=== PATIENT | male | born 1970 | race Caucasian/White ===

== ENCOUNTER → 2017-06-08 | Outpatient (CLI) | payer BC ==
[~2017-06-08] MED LIST: ASPI81TA40 PO; ICOS1CAP PO; LORA10CA9 PO; MULT-1192 PO; ROSU10TA35 PO; [UNRECOGNIZED DRUG - OTHER] PO
== END | disposition home or self-care (01) ==
LOC: SHCH 14:41
PROVIDERS: ATTEND Internal Medicine Cardiovascular Disease
DX: I08.0 Rheumatic disorders of both mitral and aortic valves (principal)
CPT/HCPCS: 93306

== ENCOUNTER → 2017-06-21 | Outpatient (CLI) | payer BC ==
[~2017-06-21] MED LIST changes: +REGADENOSON 0.4 MG/5 ML PF SYG IVP SCH
== END | disposition home or self-care (01) ==
LOC: SHCH 09:18
PROVIDERS: ATTEND Internal Medicine Cardiovascular Disease
DX: I20.9 Angina pectoris, unspecified (principal)
CPT/HCPCS: 78452; 93017; 96374; A9500 ×2; J2785

== ENCOUNTER → 2017-07-02 | Outpatient (CLI) | payer BC ==
[~2017-07-02] MED LIST changes: +IOPAMIDOL-370 100 ML VIAL IV ONE; -REGADENOSON 0.4 MG/5 ML PF SYG IVP SCH
== END | disposition home or self-care (01) ==
LOC: RAH 08:47
PROVIDERS: ATTEND Internal Medicine Cardiovascular Disease
DX: K80.20 Calculus of gallbladder without cholecystitis without obstruction (principal); R91.1 Solitary pulmonary nodule; Q25.1 Coarctation of aorta
CPT/HCPCS: 71275; Q9967

== ENCOUNTER 2017-07-12 07:29 | Inpatient (IN) | payer BC ==
[~2017-07-12] VITALS: Ht 185.4 cm; Wt 104.6 kg
[2017-07-12] VITALS (16 sets, daily range): BP systolic 105–139; BP diastolic 57–87
[2017-07-12] MEDS ORDERED: SODIUM CHLORIDE 0.9% 500ML 500 ML IV SCH ×2 (07:35→17:47)
[2017-07-12] MEDS ORDERED: ASPIRIN 325 MG TABLET ONE (07:57)
[2017-07-12] MEDS ORDERED: LIDOCAINE HCL 2% 20ML ONE ×2 (07:59→09:34)
[2017-07-12] MEDS ORDERED: HEPARIN SODIUM 1000UNIT/ML 10ML VIAL ONE ×3 (07:59→13:24)
[2017-07-12] MEDS ORDERED: IOPAMIDOL-370 100 ML VIAL IV ONE (07:59)
[2017-07-12] MEDS ORDERED: ISOVUE-370 50ML VIAL IV ONE (08:00)
[2017-07-12 08:03] LABS: HEMATOCRIT 38.4 % (42-54); MEAN CORPUSCULAR HEMOGLOBIN 29.5 pg (27.0-33.0); MEAN CORPUSCULAR HGB CONC 34.2 g/dL (32.0-36.0); MEAN CORPUSCULAR VOLUME 86.1 fL (79-99); PLATELET COUNT (AUTO) 283 K/uL (130-400); RED BLOOD CELL COUNT(AUTO) 4.46 MIL/uL (4.50-6.20); RED CELL DISTRIBUTION WIDTH 12.7 % (11.0-15.5); WHITE BLOOD COUNT (AUTO) 6.9 K/uL (4.8-10.8)
[2017-07-12 08:22] LABS: INR 0.89 (0.85-1.15); PARTIAL THROMBOPLASTIN TIME 24.7 SEC (26.3-35.5); PROTHROMBIN TIME 9.4 SEC (9.6-11.6)
[2017-07-12 08:24] LABS: CREATINE KINASE MB 1.3 ng/mL (0.5-3.6); CREATININE 1.1 mg/dL (0.5-1.5); POTASSIUM 4.2 mmol/L (3.5-5.1)
[2017-07-12 08:46] LABS: B-TYPE NATRIURETIC PEPTIDE 14 pg/mL (0-100)
[2017-07-12 08:59] LABS: APPEARANCE,URINE Clear (CLEAR); BILIRUBIN,URINE Negative (NEGATIVE); COLOR,URINE Yellow (YELLOW); GLUCOSE, URINE (UA) Negative (NEGATIVE); KETONES,URINE Negative (NEGATIVE); LEUKOCYTE ESTERASE ,URINE Negative (NEGATIVE); NITRATE,URINE Negative (NEGATIVE); OCCULT BLOOD,URINE Negative (NEGATIVE); PH,URINE 6.5 (5.0-8.0); PROTEIN,URINE Negative (NEGATIVE); UROBILINOGEN,URINE 0.2 mg/dL (0.2-1.0)
[2017-07-12] MEDS ORDERED: PAPAVERINE HCL 30 MG/ML 2ML VIAL ONE (12:40)
[2017-07-12] MEDS ORDERED: BACITRACIN 50,000 UNIT VIAL ONE (12:41)
[2017-07-12] MEDS ORDERED: NITROGLYCERIN 50 MG/D5% WATER 1 BOT ONE (12:41)
[2017-07-12] MEDS ORDERED: GLYCOPYRROLATE 0.2 MG/ML 5 ML VIAL ONE (13:24)
[2017-07-12] MEDS ORDERED: PROPOFOL 10 MG/ML 20ML VIAL IV ONE (13:24)
[2017-07-12] MEDS ORDERED: NOREPINEPHRINE BITARTRATE 1 MG/1 ML ML IV ONE ×3 (13:24→17:29)
[2017-07-12] MEDS ORDERED: AMINOCAPROIC ACID 250 MG/ML 20 ML VIAL IV ONE (13:24)
[2017-07-12] MEDS ORDERED: AMIODARONE HCL 900MG/18ML IV ONE (13:24)
[2017-07-12] MEDS ORDERED: ROCURONIUM BROMIDE 10MG/1ML 5ML VL ONE ×3 (13:24→18:01)
[2017-07-12] MEDS ORDERED: NEOSTIGMINE METHYLSULFATE 1MG/ML IV ONE (13:24)
[2017-07-12] MEDS ORDERED: LIDOCAINE PF 2% 5ML ABBOJECT ONE (13:24)
[2017-07-12] MEDS ORDERED: MILRINONE-D5W 20 MG/100 ML 0 ML IV ONE (13:24)
[2017-07-12] MEDS ORDERED: PROTAMINE SULFATE 10 MG/ML 25ML VIAL IV ONE (13:24)
[2017-07-12] MEDS ORDERED: ESMOLOL HCL 10 MG/ML 10 ML VIAL ONE (13:24)
[2017-07-12] MEDS ORDERED: FENTANYL CITRATE PF 50 MCG/1 ML 20ML VIAL IJ ONE (13:24)
[2017-07-12] MEDS ORDERED: EPINEPHRINE 1 MG/ML AMPULE ONE (13:24)
[2017-07-12] MEDS ORDERED: MIDAZOLAM HCL 1 MG/ML 5ML VIAL ONE (13:25)
[2017-07-12] MEDS ORDERED: CEFUROXIME 1.5GM+NS 100ML 100 ML IV SCH (13:30)
[2017-07-12] MEDS: CEFUROXIME SODIUM 1.5 GM VIAL IVP SCH ×2 (13:45→14:28)
[2017-07-12 14:03] LABS: HEMOGLOBIN A1C 5.8 % (4.0-6.0)
[2017-07-12 14:06] LABS: INR 0.9 (0.85-1.15); PARTIAL THROMBOPLASTIN TIME 25.7 SEC (26.3-35.5); PROTHROMBIN TIME 9.5 SEC (9.6-11.6)
[2017-07-12 14:08] LABS: CHOLESTEROL 146 mg/dL (<200); HDL CHOLESTEROL 45 mg/dL (29-71); LDL DIRECT 73 mg/dL (0-99); TRIGLYCERIDES 210 mg/dL (30-200)
[2017-07-12] MEDS ORDERED: SODIUM CHLORIDE 0.9% 1000ML 1,000 ML IV ONE ×2 (14:11→14:52)
[2017-07-12] MEDS ORDERED: THROMBIN-JMI 5000 UNIT/VIAL TP ONE (14:18)
[2017-07-12] MEDS ORDERED: DELNIDO FORMULA 2 BAG IV ONE (14:18)
[2017-07-12] MEDS ORDERED: ALBUMIN (HUMAN) 5% 250 ML IV ONE (14:52)
[2017-07-12 17:05] LABS: ABG BASE EXCESS -7.8 mmol/L (-2.0-3.0); ABG HCO3 19.9 mmol/L (21.0-28.0); ABG PCO2 50 mmHg (35-48)
[2017-07-12] MEDS ORDERED: SODIUM BICARB 50MEQ 50ML VIAL ONE ×3 (17:35→19:49)
[2017-07-12 17:37] LABS: ABG BASE EXCESS -4.7 mmol/L (-2.0-3.0); ABG HCO3 22.4 mmol/L (21.0-28.0); ABG OXYGEN SATURATION 98.9 % (95.0-99.0); ABG PCO2 50 mmHg (35-48)
[2017-07-12 17:49] LABS: ABG BASE EXCESS 0.5 mmol/L (-2.0-3.0); ABG HCO3 26.4 mmol/L (21.0-28.0); ABG OXYGEN SATURATION 98.9 % (95.0-99.0); ABG PCO2 48 mmHg (35-48)
[2017-07-12] MEDS ORDERED: NICARDIPINE HCL 100 MG in SODIUM CHLORIDE 0.9% 100 ML IV PRN (18:00)
[2017-07-12] MEDS ORDERED: HYDROCODONE/ACETAMINOPHEN 5/325 MG TAB PO PRN (18:00)
[2017-07-12] MEDS ORDERED: SODIUM CHLORIDE 0.9% 10 ML VIAL IVP PRN (18:00)
[2017-07-12] MEDS ORDERED: NOREPINEPHRINE 4MG/NS 250ML 250 ML IV PRN (18:00)
[2017-07-12] MEDS ORDERED: ALBUMIN (HUMAN) 5% 250 ML IV PRN (18:00)
[2017-07-12] MEDS ORDERED: SODIUM BICARB 8.4% 50ML SYRINGE IV PRN (18:00)
[2017-07-12] MEDS ORDERED: GLUCAGON 1MG KIT 1 MG ML IM PRN (18:00)
[2017-07-12] MEDS ORDERED: EPINEPHRINE 2 MG in SODIUM CHLORIDE 0.9% 250 ML IV PRN (18:00)
[2017-07-12] MEDS ORDERED: MAGNESIUM 2GM PREMIX 50ML 50 ML IV PRN (18:00)
[2017-07-12] MEDS ORDERED: DEXTROSE 50%-WATER 50 ML DISP.SYRIN IV PRN (18:00)
[2017-07-12] MEDS ORDERED: CALCIUM GLUCONATE 1 GM in SODIUM CHLORIDE 0.9% 50 ML IV PRN (18:00)
[2017-07-12] MEDS ORDERED: POTASSIUM PHOS 15 mMOL+NS250ML 250 ML IV PRN (18:00)
[2017-07-12] MEDS ORDERED: INSULIN REGULAR, HUMAN 3ML 100 UNIT in SODIUM CHLORIDE 0.9% 99 ML IV SCH ×2 (18:00)
[2017-07-12] MEDS ORDERED: NITROGLYCERIN 50 MG/D5% WATER 250 BOT IV SCH (18:00)
[2017-07-12] MEDS ORDERED: SODIUM CHLORIDE 0.9% 250 ML IV PRN (18:00)
[2017-07-12] MEDS ORDERED: SODIUM CHLORIDE 0.9% 1000ML 1,000 ML IV SCH (18:00)
[2017-07-12] MEDS ORDERED: ONDANSETRON HCL 4 MG/2 ML VIAL IV PRN (18:00)
[2017-07-12] MEDS ORDERED: AMINOCAPROIC ACID 15,000 MG in SODIUM CHLORIDE 0.9% 250 ML IV SCH (18:00)
[2017-07-12] MEDS ORDERED: ACETAMINOPHEN 650 MG SUPPOSITORY RC PRN (18:00)
[2017-07-12] MEDS ORDERED: PROPOFOL 1000 MG/100 ML 100 ML IV PRN (18:00)
[2017-07-12] MEDS ORDERED: INSULIN HUMULIN R 100 UNIT/ML 3ML ONE (18:04)
[2017-07-12] MEDS ORDERED: CEFUROXIME SODIUM 1.5 GM VIAL ONE (18:14)
[2017-07-12 18:24] LABS: ABG BASE EXCESS -3.2 mmol/L (-2.0-3.0); ABG HCO3 23.1 mmol/L (21.0-28.0); ABG OXYGEN SATURATION 97.2 % (95.0-99.0); ABG PCO2 46 mmHg (35-48)
[2017-07-12] MEDS ORDERED: EPHEDRINE SULFATE 50 MG/ML AMPULE ONE (18:36)
[2017-07-12] MEDS: MORPHINE SULFATE 4 MG/1ML SYG IV PRN ×2 (19:18→20:39)
[2017-07-12 19:19] LABS: ABG HCO3 25.3 mmol/L (21.0-28.0); ABG OXYGEN SATURATION 94.6 % (95.0-99.0); ABG PCO2 49 mmHg (35-48)
[2017-07-12 19:39] LABS: HEMATOCRIT 34.6 % (42-54); MEAN CORPUSCULAR HEMOGLOBIN 29.7 pg (27.0-33.0); MEAN CORPUSCULAR HGB CONC 34.2 g/dL (32.0-36.0); MEAN CORPUSCULAR VOLUME 86.8 fL (79-99); PLATELET COUNT (AUTO) 175 K/uL (130-400); RED BLOOD CELL COUNT(AUTO) 3.99 MIL/uL (4.50-6.20); RED CELL DISTRIBUTION WIDTH 13.1 % (11.0-15.5); WHITE BLOOD COUNT (AUTO) 20.3 K/uL (4.8-10.8)
[2017-07-12] MEDS ORDERED: EPINEPHRINE 8 MG in SODIUM CHLORIDE 0.9% 250 ML IV PRN (19:45)
[2017-07-12] MEDS: POTASSIUM CHLORIDE 20MEQ/100ML 100 ML IV PRN ×2 (19:47→21:29)
[2017-07-12 19:58] LABS: CREATININE 1.4 mg/dL (0.5-1.5); MAGNESIUM 2.2 mg/dL (1.80-2.40); POTASSIUM 3.3 mmol/L (3.5-5.1)
[2017-07-12 20:00] LABS: ABG BASE EXCESS -1.2 mmol/L (-2.0-3.0); ABG HCO3 25.2 mmol/L (21.0-28.0); ABG OXYGEN SATURATION 97.2 % (95.0-99.0); ABG PCO2 49 mmHg (35-48)
[2017-07-12 21:17] LABS: ABG BASE EXCESS -1.1 mmol/L (-2.0-3.0); ABG OXYGEN SATURATION 98.2 % (95.0-99.0); ABG PCO2 42 mmHg (35-48)
[2017-07-12 22:12] LABS: ABG BASE EXCESS 2.5 mmol/L (-2.0-3.0); ABG HCO3 26.4 mmol/L (21.0-28.0); ABG OXYGEN SATURATION 98.8 % (95.0-99.0); ABG PCO2 39 mmHg (35-48)
[2017-07-12 23:31] LABS: ABG BASE EXCESS 2.4 mmol/L (-2.0-3.0); ABG HCO3 27.3 mmol/L (21.0-28.0); ABG OXYGEN SATURATION 97.9 % (95.0-99.0); ABG PCO2 44 mmHg (35-48)
[2017-07-12] MEDS ORDERED: CALCIUM GLUCONATE 1 GM/10 ML VIAL IV ONE (23:34)
[2017-07-13] VITALS (24 sets, daily range): BP systolic 89–129; BP diastolic 50–70
[2017-07-13 00:37] LABS: ABG BASE EXCESS 5.6 mmol/L (-2.0-3.0); ABG HCO3 30.3 mmol/L (21.0-28.0); ABG OXYGEN SATURATION 97.1 % (95.0-99.0); ABG PCO2 45 mmHg (35-48)
[2017-07-13] MEDS ORDERED: ACETAMINOPHEN ELIXIR 325 MG/10.15ML UDCUP ONE ×2 (01:10→02:06)
[2017-07-13 01:48] LABS: ABG BASE EXCESS 5.7 mmol/L (-2.0-3.0); ABG HCO3 29.8 mmol/L (21.0-28.0); ABG OXYGEN SATURATION 97.7 % (95.0-99.0); ABG PCO2 41 mmHg (35-48)
[2017-07-13] MEDS ORDERED: CEFUROXIME 1.5GM+NS 100ML 100 ML IV SCH (02:00)
[2017-07-13] MEDS: CEFUROXIME SODIUM 1.5 GM VIAL IVP SCH ×2 (02:30→13:56)
[2017-07-13] MEDS: WATER FOR INJECTION,STERILE 20 ML VIAL IJ SCH ×2 (02:30→13:56)
[2017-07-13 03:25] LABS: ABG BASE EXCESS 3.2 mmol/L (-2.0-3.0); ABG OXYGEN SATURATION 96.1 % (95.0-99.0); ABG PCO2 44 mmHg (35-48)
[2017-07-13 03:57] LABS: HEMATOCRIT 32.4 % (42-54); MEAN CORPUSCULAR HGB CONC 33.5 g/dL (32.0-36.0); MEAN CORPUSCULAR VOLUME 86.6 fL (79-99); PLATELET COUNT (AUTO) 200 K/uL (130-400); RED BLOOD CELL COUNT(AUTO) 3.74 MIL/uL (4.50-6.20); RED CELL DISTRIBUTION WIDTH 12.9 % (11.0-15.5); WHITE BLOOD COUNT (AUTO) 12.5 K/uL (4.8-10.8)
[2017-07-13 04:31] LABS: CREATININE 1.5 mg/dL (0.5-1.5); MAGNESIUM 1.9 mg/dL (1.80-2.40); PHOSPHORUS 2.7 mg/dL (2.5-4.9); POTASSIUM 4.3 mmol/L (3.5-5.1)
[2017-07-13] MEDS ORDERED: ALBUMIN (HUMAN) 5% 250 ML IV SCH ×2 (05:50→11:00)
[2017-07-13] MEDS ORDERED: ALBUMIN (HUMAN) 5% 250 ML IV ONE (05:50)
[2017-07-13] MEDS: PANTOPRAZOLE SODIUM 40 MG TABLET.DR PO SCH (07:40)
[2017-07-13] MEDS: HYDROCODONE/ACETAMINOPHEN 5/325 MG TAB PO PRN ×4 (07:40→19:48)
[2017-07-13] MEDS ORDERED: 1/2 NORMAL SALINE 1,000 ML IV SCH (11:00)
[2017-07-13] MEDS: METOCLOPRAMIDE 10 MG/2 ML VIAL IVP SCH ×2 (11:19→17:05)
[2017-07-13] MEDS: ASPIRIN 81MG TAB.CHEW PO SCH (11:24)
[2017-07-13] MEDS: GUAIFENESIN 600 MG TABLET.ER PO SCH ×2 (11:24→20:01)
[2017-07-13] MEDS: IPRATROPIUM/ALBUTEROL SULFATE 3 ML SOLUTION IH SCH ×2 (13:13→23:16)
[2017-07-13] MEDS: METOPROLOL TARTRATE 25 MG TAB PO SCH ×2 (13:52→20:03)
[2017-07-13] MEDS: WARFARIN SODIUM 2 MG TAB PO SCH (17:09)
[2017-07-13] MEDS: ATORVASTATIN CALCIUM 20 MG TABLET PO SCH (20:03)
[2017-07-13] MEDS ORDERED: GUAIFENESIN 600 MG TABLET.ER PO SCH (21:00)
[2017-07-13] MEDS ORDERED: METOPROLOL TARTRATE 25 MG TAB PO SCH (21:00)
[2017-07-14] VITALS (21 sets, daily range): BP systolic 102–140; BP diastolic 57–88
[2017-07-14] MEDS: METOCLOPRAMIDE 10 MG/2 ML VIAL IVP SCH ×4 (01:00→18:00)
[2017-07-14 01:38] LABS: ABG BASE EXCESS 2.3 mmol/L (-2.0-3.0); ABG HCO3 26.6 mmol/L (21.0-28.0); ABG OXYGEN SATURATION 90.2 % (95.0-99.0); ABG PCO2 40 mmHg (35-48)
[2017-07-14] MEDS ORDERED: FUROSEMIDE 10 MG/ML 4ML VIAL ONE (01:50)
[2017-07-14] MEDS ORDERED: FUROSEMIDE 10 MG/ML 4ML VIAL IV SCH (02:00)
[2017-07-14] MEDS: WATER FOR INJECTION,STERILE 20 ML VIAL IJ SCH (02:17)
[2017-07-14] MEDS: CEFUROXIME SODIUM 1.5 GM VIAL IVP SCH (02:17)
[2017-07-14 02:42] LABS: ABG BASE EXCESS 2.9 mmol/L (-2.0-3.0); ABG HCO3 27.5 mmol/L (21.0-28.0); ABG OXYGEN SATURATION 97.2 % (95.0-99.0); ABG PCO2 42 mmHg (35-48)
[2017-07-14] MEDS: ACETAMINOPHEN 325 MG TAB PO PRN ×3 (03:24→17:13)
[2017-07-14 04:17] LABS: BASOPHILS % (AUTO) 0.2 % (0.0-5.0); HEMATOCRIT 27.4 % (42-54); MEAN CORPUSCULAR HEMOGLOBIN 30.1 pg (27.0-33.0); MEAN CORPUSCULAR HGB CONC 34.5 g/dL (32.0-36.0); MEAN CORPUSCULAR VOLUME 87.3 fL (79-99); MONOCYTES % (AUTO) 11.9 % (3.0-13.0); NEUTROPHILS % (AUTO) 75.9 % (40.0-77.0); PLATELET COUNT (AUTO) 172 K/uL (130-400); RED BLOOD CELL COUNT(AUTO) 3.14 MIL/uL (4.50-6.20); RED CELL DISTRIBUTION WIDTH 13.3 % (11.0-15.5); WHITE BLOOD COUNT (AUTO) 14.6 K/uL (4.8-10.8)
[2017-07-14 04:39] LABS: ABG BASE EXCESS 3.5 mmol/L (-2.0-3.0); ABG HCO3 28.1 mmol/L (21.0-28.0); ABG OXYGEN SATURATION 95.6 % (95.0-99.0); ABG PCO2 42 mmHg (35-48)
[2017-07-14 04:40] LABS: CREATININE 1.1 mg/dL (0.5-1.5); POTASSIUM 3.6 mmol/L (3.5-5.1)
[2017-07-14] MEDS ORDERED: SODIUM CHLORIDE FOR INHALATION 3 ML VIAL.NEB. IH ONE (06:07)
[2017-07-14] MEDS: POTASSIUM CHLORIDE 20MEQ/100ML 100 ML IV PRN (06:10)
[2017-07-14 06:23] LABS: ABG BASE EXCESS 3.4 mmol/L (-2.0-3.0); ABG HCO3 27.7 mmol/L (21.0-28.0); ABG PCO2 41 mmHg (35-48)
[2017-07-14] MEDS: IPRATROPIUM/ALBUTEROL SULFATE 3 ML SOLUTION IH SCH ×3 (06:54→22:07)
[2017-07-14] MEDS: MORPHINE SULFATE 4 MG/1ML SYG IV PRN (07:45)
[2017-07-14] MEDS: POTASSIUM CHLORIDE 20 MEQ ERTAB PO SCH ×2 (09:00→21:00)
[2017-07-14] MEDS ORDERED: ASPIRIN 81MG TAB.CHEW PO SCH (09:00)
[2017-07-14 09:21] LABS: INR 0.95 (0.85-1.15)
[2017-07-14] MEDS ORDERED: OSELTAMIVIR PHOSPHATE 75 MG CAP PO SCH (09:30)
[2017-07-14] MEDS ORDERED: ZOSYN 3.375GM+NS 50ML 50 ML IV SCH (09:30)
[2017-07-14] MEDS: GUAIFENESIN 600 MG TABLET.ER PO SCH (10:16)
[2017-07-14] MEDS: ASPIRIN 81MG TAB.CHEW PO SCH (10:16)
[2017-07-14] MEDS: METOPROLOL TARTRATE 25 MG TAB PO SCH ×2 (10:16→20:02)
[2017-07-14] MEDS: PANTOPRAZOLE SODIUM 40 MG TABLET.DR PO SCH (10:16)
[2017-07-14] MEDS: MEROPENEM 1 GM VIAL IVP SCH ×2 (10:49→18:16)
[2017-07-14] MEDS: MORPHINE SULFATE 2 MG/ML 1ML SYG IV PRN ×2 (12:21→17:22)
[2017-07-14 16:34] LABS: CREATININE 1.2 mg/dL (0.5-1.5)
[2017-07-14 16:52] LABS: ABG BASE EXCESS 6.2 mmol/L (-2.0-3.0); ABG HCO3 30.8 mmol/L (21.0-28.0); ABG PCO2 44 mmHg (35-48)
[2017-07-14] MEDS: FUROSEMIDE 100 MG in SODIUM CHLORIDE 0.9% 90 ML IV SCH (16:56)
[2017-07-14] MEDS: WARFARIN SODIUM 2 MG TAB PO SCH (17:14)
[2017-07-14] MEDS: VANCOMYCIN 1GM+NS 250ML 250 ML IV SCH (20:01)
[2017-07-14] MEDS: ATORVASTATIN CALCIUM 20 MG TABLET PO SCH (20:01)
[2017-07-14] MEDS: OSELTAMIVIR PHOSPHATE 75 MG CAP PO SCH (20:02)
[2017-07-14] MEDS: FAMOTIDINE/PF 20 MG/2 ML VIAL IV SCH (20:08)
[2017-07-14 21:57] LABS: ABG BASE EXCESS 6.5 mmol/L (-2.0-3.0); ABG HCO3 31.4 mmol/L (21.0-28.0); ABG OXYGEN SATURATION 98.2 % (95.0-99.0); ABG PCO2 47 mmHg (35-48)
[2017-07-15] VITALS (24 sets, daily range): BP systolic 95–146; BP diastolic 49–89
[2017-07-15] MEDS: MEROPENEM 1 GM VIAL IVP SCH ×4 (01:13→23:59)
[2017-07-15] MEDS: FUROSEMIDE 100 MG in SODIUM CHLORIDE 0.9% 90 ML IV SCH ×3 (02:21→20:42)
[2017-07-15 03:54] LABS: MEAN CORPUSCULAR HEMOGLOBIN 29.3 pg (27.0-33.0); MEAN CORPUSCULAR HGB CONC 33.6 g/dL (32.0-36.0); MEAN CORPUSCULAR VOLUME 87.1 fL (79-99); NUCLEATED RED BLOOD CELLS 0.1 % (0.0-0.19); PLATELET COUNT (AUTO) 204 K/uL (130-400); RED BLOOD CELL COUNT(AUTO) 3.09 MIL/uL (4.50-6.20); RED CELL DISTRIBUTION WIDTH 13.2 % (11.0-15.5); WHITE BLOOD COUNT (AUTO) 14.5 K/uL (4.8-10.8)
[2017-07-15 04:06] LABS: CREATININE 1.2 mg/dL (0.5-1.5); MAGNESIUM 2.2 mg/dL (1.80-2.40); PHOSPHORUS 3.4 mg/dL (2.5-4.9); POTASSIUM 3.8 mmol/L (3.5-5.1)
[2017-07-15 05:21] LABS: ABG BASE EXCESS 8.5 mmol/L (-2.0-3.0); ABG HCO3 33.7 mmol/L (21.0-28.0); ABG OXYGEN SATURATION 97.4 % (95.0-99.0); ABG PCO2 48 mmHg (35-48)
[2017-07-15] MEDS: METOCLOPRAMIDE 10 MG/2 ML VIAL IVP SCH ×2 (06:00)
[2017-07-15] MEDS: IPRATROPIUM/ALBUTEROL SULFATE 3 ML SOLUTION IH SCH ×3 (07:33→22:14)
[2017-07-15] MEDS: VANCOMYCIN 1GM+NS 250ML 250 ML IV SCH ×2 (07:51→18:37)
[2017-07-15 08:17] LABS: INR 0.91 (0.85-1.15); PROTHROMBIN TIME 9.6 SEC (9.6-11.6)
[2017-07-15] MEDS: POTASSIUM CHLORIDE 20 MEQ ERTAB PO SCH ×2 (09:00→20:44)
[2017-07-15] MEDS: OSELTAMIVIR PHOSPHATE 75 MG CAP PO SCH ×2 (09:43→20:43)
[2017-07-15] MEDS: METOPROLOL TARTRATE 25 MG TAB PO SCH ×2 (09:43→20:43)
[2017-07-15] MEDS: FAMOTIDINE/PF 20 MG/2 ML VIAL IV SCH ×2 (09:43→20:44)
[2017-07-15] MEDS: TRAMADOL HCL 50 MG TABLET PO PRN ×3 (09:44→23:59)
[2017-07-15] MEDS: POTASSIUM CHLORIDE 20MEQ/100ML 100 ML IV PRN (09:44)
[2017-07-15] MEDS: ASPIRIN 81MG TAB.CHEW PO SCH (09:44)
[2017-07-15] MEDS ORDERED: IPRATROPIUM 0.5 MG/2.5 ML INH IH PRN (10:00)
[2017-07-15] MEDS: ACETYLCYSTEINE 20% 200MG/ML 4ML VIAL IH SCH ×2 (13:35→22:15)
[2017-07-15] MEDS ORDERED: WATER FOR INJECTION,STERILE 5 ML VIAL ONE (15:31)
[2017-07-15] MEDS: ACETAZOLAMIDE SODIUM 500 MG VIAL IV SCH ×2 (15:33→23:59)
[2017-07-15] MEDS ORDERED: WARFARIN SODIUM 5 MG TAB PO SCH (16:00)
[2017-07-15] MEDS: ATORVASTATIN CALCIUM 20 MG TABLET PO SCH (20:44)
[2017-07-16] VITALS (24 sets, daily range): BP systolic 85–134; BP diastolic 40–87
[2017-07-16 03:52] LABS: HEMATOCRIT 26.6 % (42-54); MEAN CORPUSCULAR HEMOGLOBIN 29.2 pg (27.0-33.0); MEAN CORPUSCULAR HGB CONC 33.2 g/dL (32.0-36.0); MEAN CORPUSCULAR VOLUME 87.9 fL (79-99); NUCLEATED RED BLOOD CELLS 0.1 % (0.0-0.19); PLATELET COUNT (AUTO) 272 K/uL (130-400); RED BLOOD CELL COUNT(AUTO) 3.03 MIL/uL (4.50-6.20); RED CELL DISTRIBUTION WIDTH 13.1 % (11.0-15.5)
[2017-07-16 04:15] LABS: ALBUMIN 2.7 g/dL (3.5-5.0); BILIRUBIN,TOTAL 0.5 mg/dL (0.2-1.0); CREATININE 1.2 mg/dL (0.5-1.5); POTASSIUM 3.6 mmol/L (3.5-5.1); TOTAL PROTEIN, SERUM 6.9 g/dL (6.0-8.3)
[2017-07-16 04:32] LABS: INR 0.91 (0.85-1.15); PROTHROMBIN TIME 9.6 SEC (9.6-11.6)
[2017-07-16 04:33] LABS: B-TYPE NATRIURETIC PEPTIDE 114 pg/mL (0-100)
[2017-07-16 05:43] LABS: ABG BASE EXCESS 4.4 mmol/L (-2.0-3.0); ABG HCO3 30.8 mmol/L (21.0-28.0); ABG OXYGEN SATURATION 98.7 % (95.0-99.0); ABG PCO2 53 mmHg (35-48)
[2017-07-16] MEDS: ACETAZOLAMIDE SODIUM 500 MG VIAL IV SCH (05:52)
[2017-07-16] MEDS: TRAMADOL HCL 50 MG TABLET PO PRN ×2 (06:13→11:45)
[2017-07-16] MEDS: IPRATROPIUM/ALBUTEROL SULFATE 3 ML SOLUTION IH SCH ×3 (07:03→21:54)
[2017-07-16] MEDS: ACETYLCYSTEINE 20% 200MG/ML 4ML VIAL IH SCH ×3 (07:03→21:54)
[2017-07-16] MEDS: ASPIRIN 81MG TAB.CHEW PO SCH (08:07)
[2017-07-16] MEDS: VANCOMYCIN 1GM+NS 250ML 250 ML IV SCH ×2 (08:07→18:49)
[2017-07-16] MEDS: FAMOTIDINE/PF 20 MG/2 ML VIAL IV SCH ×2 (08:08→20:11)
[2017-07-16] MEDS: METOPROLOL TARTRATE 25 MG TAB PO SCH (08:08)
[2017-07-16] MEDS: POTASSIUM CHLORIDE 20 MEQ ERTAB PO SCH ×2 (08:08→20:10)
[2017-07-16] MEDS: OSELTAMIVIR PHOSPHATE 75 MG CAP PO SCH ×2 (08:08→20:10)
[2017-07-16] MEDS: MEROPENEM 1 GM VIAL IVP SCH ×2 (08:09→18:49)
[2017-07-16] MEDS ORDERED: METOPROLOL TARTRATE 25 MG TAB PO SCH ×2 (09:00→21:00)
[2017-07-16] MEDS: ENOXAPARIN SODIUM 40 MG/0.4 ML SYRINGE SQ SCH (10:24)
[2017-07-16] MEDS: FUROSEMIDE 10 MG/ML 4ML VIAL IV SCH ×2 (10:24→20:11)
[2017-07-16] MEDS ORDERED: CALCIUM CHLORIDE 100 MG/ML 10 ML SYG IVP ONE (12:00)
[2017-07-16] MEDS ORDERED: SODIUM BICARB 8.4% 50ML SYRINGE IVP ONE (12:00)
[2017-07-16] MEDS ORDERED: ALBUMIN (HUMAN) 25% 50 ML IV ONE (12:00)
[2017-07-16] MEDS ORDERED: MANNITOL 25% 50ML VIAL IV ONE (12:00)
[2017-07-16] MEDS ORDERED: HEPARIN SODIUM 1000UNIT/ML 10ML VIAL IV ONE (12:00)
[2017-07-16] MEDS ORDERED: AMINOCAPROIC ACID 250 MG/ML 20 ML VIAL IV ONE (12:00)
[2017-07-16] MEDS ORDERED: WARFARIN SODIUM 7.5 MG TAB PO SCH (16:00)
[2017-07-16] MEDS: METOPROLOL TARTRATE 1 MG/ML 5ML VIAL IV PRN (18:48)
[2017-07-16] MEDS: ATORVASTATIN CALCIUM 20 MG TABLET PO SCH (20:10)
[2017-07-17] VITALS (13 sets, daily range): BP systolic 97–115; BP diastolic 59–78
[2017-07-17] MEDS: MEROPENEM 1 GM VIAL IVP SCH ×3 (00:31→18:05)
[2017-07-17 03:45] LABS: HEMATOCRIT 28.7 % (42-54); MEAN CORPUSCULAR HEMOGLOBIN 29.5 pg (27.0-33.0); MEAN CORPUSCULAR HGB CONC 34.1 g/dL (32.0-36.0); MEAN CORPUSCULAR VOLUME 86.6 fL (79-99); NUCLEATED RED BLOOD CELLS 0.1 % (0.0-0.19); PLATELET COUNT (AUTO) 372 K/uL (130-400); RED BLOOD CELL COUNT(AUTO) 3.31 MIL/uL (4.50-6.20); RED CELL DISTRIBUTION WIDTH 12.9 % (11.0-15.5); WHITE BLOOD COUNT (AUTO) 12.4 K/uL (4.8-10.8)
[2017-07-17 03:56] LABS: CREATININE 1.1 mg/dL (0.5-1.5); MAGNESIUM 2.6 mg/dL (1.80-2.40); POTASSIUM 4.1 mmol/L (3.5-5.1)
[2017-07-17 04:04] LABS: B-TYPE NATRIURETIC PEPTIDE 156 pg/mL (0-100)
[2017-07-17] MEDS: VANCOMYCIN 1GM+NS 250ML 250 ML IV SCH (06:06)
[2017-07-17 06:13] LABS: INR 0.95 (0.85-1.15)
[2017-07-17] MEDS: TRAMADOL HCL 50 MG TABLET PO PRN ×2 (06:37→16:03)
[2017-07-17] MEDS: ACETYLCYSTEINE 20% 200MG/ML 4ML VIAL IH SCH ×3 (06:44→22:35)
[2017-07-17] MEDS: IPRATROPIUM/ALBUTEROL SULFATE 3 ML SOLUTION IH SCH ×3 (06:44→22:35)
[2017-07-17] MEDS: FAMOTIDINE/PF 20 MG/2 ML VIAL IV SCH ×2 (09:12→21:04)
[2017-07-17] MEDS: ASPIRIN 81MG TAB.CHEW PO SCH (09:12)
[2017-07-17] MEDS: OSELTAMIVIR PHOSPHATE 75 MG CAP PO SCH ×2 (09:12→21:05)
[2017-07-17] MEDS: FUROSEMIDE 10 MG/ML 4ML VIAL IV SCH ×2 (09:13→21:04)
[2017-07-17] MEDS: POTASSIUM CHLORIDE 20 MEQ ERTAB PO SCH ×2 (09:13→21:05)
[2017-07-17] MEDS: ENOXAPARIN SODIUM 40 MG/0.4 ML SYRINGE SQ SCH (09:14)
[2017-07-17] MEDS: METOPROLOL TARTRATE 1 MG/ML 5ML VIAL IV PRN (10:27)
[2017-07-17] MEDS ORDERED: WARFARIN SODIUM 10 MG TABLET PO SCH (16:00)
[2017-07-17] MEDS ORDERED: WARFARIN SODIUM 2.5 MG TAB PO SCH (16:00)
[2017-07-17] MEDS ORDERED: COMPOUND IV REFRIGERATED 1 EACH IVSOLN MISC PRN (19:30)
[2017-07-17] MEDS: ATORVASTATIN CALCIUM 20 MG TABLET PO SCH (21:05)
[2017-07-17] MEDS: METOPROLOL TARTRATE 50 MG TAB PO SCH (21:05)
[2017-07-17] MEDS: VANCOMYCIN 1.5 GM in SODIUM CHLORIDE 0.9% 250 ML IV SCH (21:19)
[2017-07-18] MEDS: MEROPENEM 1 GM VIAL IVP SCH ×3 (00:33→16:41)
[2017-07-18 03:23] VITALS: BP 112/72
[2017-07-18 05:01] LABS: MEAN CORPUSCULAR HEMOGLOBIN 29.3 pg (27.0-33.0); NUCLEATED RED BLOOD CELLS 0.2 % (0.0-0.19); PLATELET COUNT (AUTO) 485 K/uL (130-400); RED BLOOD CELL COUNT(AUTO) 3.48 MIL/uL (4.50-6.20); RED CELL DISTRIBUTION WIDTH 12.8 % (11.0-15.5); WHITE BLOOD COUNT (AUTO) 13.1 K/uL (4.8-10.8)
[2017-07-18 05:34] LABS: POTASSIUM 4.1 mmol/L (3.5-5.1)
[2017-07-18] MEDS: IPRATROPIUM/ALBUTEROL SULFATE 3 ML SOLUTION IH SCH ×3 (06:11→22:29)
[2017-07-18] MEDS: ACETYLCYSTEINE 20% 200MG/ML 4ML VIAL IH SCH ×3 (06:11→22:30)
[2017-07-18 06:31] LABS: INR 1.17 (0.85-1.15); PROTHROMBIN TIME 12.2 SEC (9.6-11.6)
[2017-07-18 07:30] VITALS: BP_SYST 113; BP_SYST 137; BP_DIAS 68
[2017-07-18] MEDS: VANCOMYCIN 1.5 GM in SODIUM CHLORIDE 0.9% 250 ML IV SCH ×2 (08:55→20:31)
[2017-07-18] MEDS: POTASSIUM CHLORIDE 20 MEQ ERTAB PO SCH ×2 (08:56→20:38)
[2017-07-18] MEDS: FUROSEMIDE 20 MG TABLET PO SCH ×2 (08:56→20:36)
[2017-07-18] MEDS: ASPIRIN 81MG TAB.CHEW PO SCH (08:56)
[2017-07-18] MEDS: OSELTAMIVIR PHOSPHATE 75 MG CAP PO SCH ×2 (08:57→20:36)
[2017-07-18] MEDS: ENOXAPARIN SODIUM 40 MG/0.4 ML SYRINGE SQ SCH (08:57)
[2017-07-18] MEDS: FAMOTIDINE/PF 20 MG/2 ML VIAL IV SCH ×2 (08:57→20:30)
[2017-07-18] MEDS: METOPROLOL TARTRATE 50 MG TAB PO SCH ×2 (08:57→20:55)
[2017-07-18 11:31] VITALS: BP 110/62
[2017-07-18] MEDS ORDERED: ROSU10TA35 PO (12:12)
[2017-07-18] MEDS ORDERED: ICOS1CAP PO (12:12)
[2017-07-18] MEDS ORDERED: [UNRECOGNIZED DRUG - OTHER] PO (12:12)
[2017-07-18] MEDS ORDERED: LORA10CA9 PO (12:12)
[2017-07-18] MEDS ORDERED: ASPI81TA40 PO (12:12)
[2017-07-18] MEDS ORDERED: MULT-1192 PO (12:12)
[2017-07-18 16:19] VITALS: BP 119/63
[2017-07-18] MEDS: WARFARIN SODIUM 10 MG TABLET PO SCH (16:39)
[2017-07-18] MEDS: WARFARIN SODIUM 2.5 MG TAB PO SCH (16:39)
[2017-07-18] MEDS ORDERED: FUROSEMIDE 10 MG/ML 4ML VIAL IV ONE (17:00)
[2017-07-18 19:35] VITALS: BP 114/69
[2017-07-18] MEDS: TRAMADOL HCL 50 MG TABLET PO PRN (20:25)
[2017-07-18] MEDS: ATORVASTATIN CALCIUM 20 MG TABLET PO SCH (20:37)
[2017-07-18] MEDS: ENOXAPARIN SODIUM 60 MG/0.6 ML SQ SCH (20:56)
[2017-07-18] MEDS ORDERED: ENOXAPARIN SODIUM 40 MG/0.4 ML SYRINGE SQ SCH (21:00)
[2017-07-19] VITALS (7 sets, daily range): BP systolic 97–123; BP diastolic 58–64
[2017-07-19] MEDS: MEROPENEM 1 GM VIAL IVP SCH ×3 (02:06→16:28)
[2017-07-19 04:36] LABS: INR 1.46 (0.85-1.15); PROTHROMBIN TIME 15.2 SEC (9.6-11.6)
[2017-07-19] MEDS: IPRATROPIUM/ALBUTEROL SULFATE 3 ML SOLUTION IH SCH ×3 (05:56→21:29)
[2017-07-19] MEDS: ACETYLCYSTEINE 20% 200MG/ML 4ML VIAL IH SCH ×3 (05:57→21:29)
[2017-07-19] MEDS: POTASSIUM CHLORIDE 20 MEQ ERTAB PO SCH ×2 (09:09→21:08)
[2017-07-19] MEDS: ASPIRIN 81MG TAB.CHEW PO SCH (09:09)
[2017-07-19] MEDS: METOPROLOL TARTRATE 50 MG TAB PO SCH (09:09)
[2017-07-19] MEDS: OSELTAMIVIR PHOSPHATE 75 MG CAP PO SCH (09:09)
[2017-07-19] MEDS: FUROSEMIDE 20 MG TABLET PO SCH ×2 (09:09→16:22)
[2017-07-19] MEDS: FAMOTIDINE/PF 20 MG/2 ML VIAL IV SCH ×2 (09:10→21:01)
[2017-07-19] MEDS: ENOXAPARIN SODIUM 60 MG/0.6 ML SQ SCH ×2 (09:10→21:09)
[2017-07-19] MEDS: VANCOMYCIN 1.5 GM in SODIUM CHLORIDE 0.9% 250 ML IV SCH ×2 (09:11→21:01)
[2017-07-19] MEDS: WARFARIN SODIUM 2.5 MG TAB PO SCH (16:23)
[2017-07-19] MEDS: WARFARIN SODIUM 10 MG TABLET PO SCH (16:24)
[2017-07-19] MEDS: ATORVASTATIN CALCIUM 20 MG TABLET PO SCH (21:08)
[2017-07-20] MEDS: METOPROLOL TARTRATE 50 MG TAB PO SCH ×3 (00:04→20:39)
[2017-07-20] MEDS: MEROPENEM 1 GM VIAL IVP SCH ×2 (01:50→07:56)
[2017-07-20 03:44] VITALS: BP 107/67
[2017-07-20 04:56] LABS: INR 1.95 (0.85-1.15); PROTHROMBIN TIME 20.2 SEC (9.6-11.6)
[2017-07-20] MEDS: IPRATROPIUM/ALBUTEROL SULFATE 3 ML SOLUTION IH SCH ×3 (06:15→22:06)
[2017-07-20] MEDS: ACETYLCYSTEINE 20% 200MG/ML 4ML VIAL IH SCH ×3 (06:15→22:07)
[2017-07-20] MEDS: TRAMADOL HCL 50 MG TABLET PO PRN (06:30)
[2017-07-20 07:40] VITALS: BP 110/71
[2017-07-20] MEDS: ENOXAPARIN SODIUM 60 MG/0.6 ML SQ SCH ×2 (07:57→20:43)
[2017-07-20] MEDS: POTASSIUM CHLORIDE 20 MEQ ERTAB PO SCH ×2 (07:57→20:41)
[2017-07-20] MEDS: FUROSEMIDE 20 MG TABLET PO SCH ×2 (07:57→20:40)
[2017-07-20] MEDS: ASPIRIN 81MG TAB.CHEW PO SCH (07:57)
[2017-07-20] MEDS: FAMOTIDINE/PF 20 MG/2 ML VIAL IV SCH ×2 (07:58→20:42)
[2017-07-20] MEDS ORDERED: VANCOMYCIN 1.25 GM in SODIUM CHLORIDE 0.9% 250 ML IV SCH (09:00)
[2017-07-20] MEDS ORDERED: COMPOUND IV REFRIGERATED 1 EACH IVSOLN MISC PRN (09:15)
[2017-07-20 11:55] VITALS: BP 96/64
[2017-07-20] MEDS: WARFARIN SODIUM 2.5 MG TAB PO SCH (16:21)
[2017-07-20 16:30] VITALS: BP 110/68
[2017-07-20 19:42] VITALS: BP 107/67
[2017-07-20] MEDS: ATORVASTATIN CALCIUM 20 MG TABLET PO SCH (20:38)
[2017-07-20] MEDS: BUSPIRONE HCL 5 MG TABLET PO SCH (20:41)
[2017-07-21] VITALS (7 sets, daily range): BP systolic 95–141; BP diastolic 59–76
[2017-07-21] MEDS: TRAMADOL HCL 50 MG TABLET PO PRN (03:26)
[2017-07-21] MEDS: ACETYLCYSTEINE 20% 200MG/ML 4ML VIAL IH SCH ×3 (04:45→21:44)
[2017-07-21 04:58] LABS: BASOPHILS % (AUTO) 0.4 % (0.0-5.0); EOSINOPHILS % (AUTO) 3.1 % (0.0-8.0); HEMATOCRIT 30.2 % (42-54); LYMPHOCYTES % (AUTO) 17.2 % (21.0-51.0); MEAN CORPUSCULAR HEMOGLOBIN 29.1 pg (27.0-33.0); MEAN CORPUSCULAR HGB CONC 33.9 g/dL (32.0-36.0); MEAN CORPUSCULAR VOLUME 85.7 fL (79-99); MONOCYTES % (AUTO) 9.1 % (3.0-13.0); NEUTROPHILS % (AUTO) 70.2 % (40.0-77.0); NUCLEATED RED BLOOD CELLS 0.1 % (0.0-0.19); PLATELET COUNT (AUTO) 652 K/uL (130-400); RED BLOOD CELL COUNT(AUTO) 3.52 MIL/uL (4.50-6.20); RED CELL DISTRIBUTION WIDTH 13.1 % (11.0-15.5); WHITE BLOOD COUNT (AUTO) 17.2 K/uL (4.8-10.8)
[2017-07-21 05:07] LABS: INR 1.79 (0.85-1.15); PROTHROMBIN TIME 18.6 SEC (9.6-11.6)
[2017-07-21 05:12] LABS: ALBUMIN 3.1 g/dL (3.5-5.0); BILIRUBIN,TOTAL 0.6 mg/dL (0.2-1.0); CREATININE 1.1 mg/dL (0.5-1.5); MAGNESIUM 2.1 mg/dL (1.80-2.40); PHOSPHORUS 3.9 mg/dL (2.5-4.9); POTASSIUM 4.3 mmol/L (3.5-5.1); TOTAL PROTEIN, SERUM 7.7 g/dL (6.0-8.3)
[2017-07-21] MEDS: IPRATROPIUM/ALBUTEROL SULFATE 3 ML SOLUTION IH SCH ×3 (06:00→21:44)
[2017-07-21] MEDS ORDERED: METOPROLOL TARTRATE 50 MG TAB PO SCH (09:00)
[2017-07-21] MEDS: POTASSIUM CHLORIDE 20 MEQ ERTAB PO SCH ×2 (09:32→19:55)
[2017-07-21] MEDS: FAMOTIDINE/PF 20 MG/2 ML VIAL IV SCH ×2 (09:32→19:56)
[2017-07-21] MEDS: BUSPIRONE HCL 5 MG TABLET PO SCH ×2 (09:32→19:53)
[2017-07-21] MEDS: ASPIRIN 81MG TAB.CHEW PO SCH (09:32)
[2017-07-21] MEDS: METOPROLOL TARTRATE 50 MG TAB PO SCH ×2 (09:33→19:54)
[2017-07-21] MEDS: FUROSEMIDE 20 MG TABLET PO SCH ×2 (09:33→19:55)
[2017-07-21] MEDS: ENOXAPARIN SODIUM 60 MG/0.6 ML SQ SCH ×2 (09:33→19:56)
[2017-07-21] MEDS ORDERED: WARFARIN SODIUM 2 MG TAB PO SCH (16:00)
[2017-07-21] MEDS: ATORVASTATIN CALCIUM 20 MG TABLET PO SCH (19:56)
[2017-07-22] VITALS (7 sets, daily range): BP systolic 94–122; BP diastolic 56–74
[2017-07-22 05:10] LABS: INR 1.75 (0.85-1.15); PROTHROMBIN TIME 18.2 SEC (9.6-11.6)
[2017-07-22] MEDS: ACETYLCYSTEINE 20% 200MG/ML 4ML VIAL IH SCH ×3 (06:25→22:09)
[2017-07-22] MEDS: IPRATROPIUM/ALBUTEROL SULFATE 3 ML SOLUTION IH SCH ×3 (06:26→22:09)
[2017-07-22] MEDS: POTASSIUM CHLORIDE 20 MEQ ERTAB PO SCH ×3 (07:55→21:00)
[2017-07-22] MEDS: BUSPIRONE HCL 5 MG TABLET PO SCH ×2 (07:55→20:10)
[2017-07-22] MEDS: METOPROLOL TARTRATE 50 MG TAB PO SCH ×2 (07:55→20:09)
[2017-07-22] MEDS: FUROSEMIDE 20 MG TABLET PO SCH (07:55)
[2017-07-22] MEDS: ENOXAPARIN SODIUM 60 MG/0.6 ML SQ SCH ×2 (07:56→20:08)
[2017-07-22] MEDS: ASPIRIN 81MG TAB.CHEW PO SCH (07:56)
[2017-07-22] MEDS: FAMOTIDINE/PF 20 MG/2 ML VIAL IV SCH ×2 (07:57→20:10)
[2017-07-22] MEDS: TRAMADOL HCL 50 MG TABLET PO PRN ×2 (09:07→20:09)
[2017-07-22 09:50] LABS: HEMATOCRIT 29.4 % (42-54); MEAN CORPUSCULAR HEMOGLOBIN 28.5 pg (27.0-33.0); MEAN CORPUSCULAR HGB CONC 32.7 g/dL (32.0-36.0); NUCLEATED RED BLOOD CELLS 0.3 % (0.0-0.19); PLATELET COUNT (AUTO) 593 K/uL (130-400); RED BLOOD CELL COUNT(AUTO) 3.38 MIL/uL (4.50-6.20); RED CELL DISTRIBUTION WIDTH 13.4 % (11.0-15.5); WHITE BLOOD COUNT (AUTO) 13.6 K/uL (4.8-10.8)
[2017-07-22] MEDS ORDERED: WARFARIN SODIUM 2 MG TAB PO SCH (16:00)
[2017-07-22] MEDS: ATORVASTATIN CALCIUM 20 MG TABLET PO SCH (20:10)
[2017-07-22] MEDS ORDERED: FUROSEMIDE 10 MG/ML 4ML VIAL IV SCH (21:00)
[2017-07-23 03:57] VITALS: BP 117/69
[2017-07-23 04:36] LABS: INR 1.74 (0.85-1.15); PROTHROMBIN TIME 18.1 SEC (9.6-11.6)
[2017-07-23 04:37] LABS: CREATININE 1.1 mg/dL (0.5-1.5); POTASSIUM 4.6 mmol/L (3.5-5.1)
[2017-07-23 04:47] LABS: B-TYPE NATRIURETIC PEPTIDE 150 pg/mL (0-100)
[2017-07-23 04:48] LABS: HEMATOCRIT 30.5 % (42-54); MEAN CORPUSCULAR HEMOGLOBIN 28.4 pg (27.0-33.0); MEAN CORPUSCULAR HGB CONC 33.3 g/dL (32.0-36.0); MEAN CORPUSCULAR VOLUME 85.3 fL (79-99); NUCLEATED RED BLOOD CELLS 0.1 % (0.0-0.19); PLATELET COUNT (AUTO) 584 K/uL (130-400); RED BLOOD CELL COUNT(AUTO) 3.57 MIL/uL (4.50-6.20); RED CELL DISTRIBUTION WIDTH 13.4 % (11.0-15.5); WHITE BLOOD COUNT (AUTO) 12.3 K/uL (4.8-10.8)
[2017-07-23] MEDS: ACETYLCYSTEINE 20% 200MG/ML 4ML VIAL IH SCH ×3 (06:03→21:44)
[2017-07-23] MEDS: IPRATROPIUM/ALBUTEROL SULFATE 3 ML SOLUTION IH SCH ×3 (06:03→21:44)
[2017-07-23 07:35] VITALS: BP 118/78
[2017-07-23 11:38] VITALS: BP 144/87
[2017-07-23] MEDS: BUSPIRONE HCL 5 MG TABLET PO SCH ×2 (11:50→20:20)
[2017-07-23] MEDS: ASPIRIN 81MG TAB.CHEW PO SCH (11:50)
[2017-07-23] MEDS: FUROSEMIDE 40 MG TABLET PO SCH ×2 (11:50→16:59)
[2017-07-23] MEDS: METOPROLOL TARTRATE 50 MG TAB PO SCH ×2 (11:51→20:21)
[2017-07-23] MEDS: POTASSIUM CHLORIDE 20 MEQ ERTAB PO SCH ×2 (11:52→20:23)
[2017-07-23] MEDS: FAMOTIDINE/PF 20 MG/2 ML VIAL IV SCH ×2 (11:52→20:22)
[2017-07-23] MEDS: HEPARIN 25000 UNITS/250 ML D5W 250 ML IV SCH ×2 (12:42→22:55)
[2017-07-23] MEDS ORDERED: WARFARIN SODIUM 2 MG TAB PO SCH (16:00)
[2017-07-23 16:26] VITALS: BP 106/64
[2017-07-23] MEDS: WARFARIN SODIUM 2 MG TAB PO SCH (16:59)
[2017-07-23 19:26] VITALS: BP 113/78
[2017-07-23] MEDS: ATORVASTATIN CALCIUM 20 MG TABLET PO SCH (20:21)
[2017-07-23] MEDS: TRAMADOL HCL 50 MG TABLET PO PRN (20:21)
[2017-07-23 23:42] VITALS: BP 94/56
[2017-07-24 03:46] VITALS: BP 96/66
[2017-07-24 04:39] LABS: BASOPHILS % (AUTO) 0.6 % (0.0-5.0); EOSINOPHILS % (AUTO) 3.3 % (0.0-8.0); HEMATOCRIT 28.7 % (42-54); LYMPHOCYTES % (AUTO) 28.5 % (21.0-51.0); MEAN CORPUSCULAR HGB CONC 33.8 g/dL (32.0-36.0); MEAN CORPUSCULAR VOLUME 85.8 fL (79-99); MONOCYTES % (AUTO) 9.7 % (3.0-13.0); NEUTROPHILS % (AUTO) 57.9 % (40.0-77.0); NUCLEATED RED BLOOD CELLS 0.1 % (0.0-0.19); PLATELET COUNT (AUTO) 552 K/uL (130-400); RED BLOOD CELL COUNT(AUTO) 3.34 MIL/uL (4.50-6.20); RED CELL DISTRIBUTION WIDTH 13.5 % (11.0-15.5); WHITE BLOOD COUNT (AUTO) 14.4 K/uL (4.8-10.8)
[2017-07-24 04:50] LABS: INR 1.97 (0.85-1.15); PARTIAL THROMBOPLASTIN TIME 75.6 SEC (26.3-35.5); PROTHROMBIN TIME 20.4 SEC (9.6-11.6)
[2017-07-24] MEDS: IPRATROPIUM/ALBUTEROL SULFATE 3 ML SOLUTION IH SCH ×3 (06:10→21:55)
[2017-07-24] MEDS: ACETYLCYSTEINE 20% 200MG/ML 4ML VIAL IH SCH ×3 (06:10→20:45)
[2017-07-24 07:28] VITALS: BP 106/59
[2017-07-24] MEDS: FUROSEMIDE 40 MG TABLET PO SCH ×2 (09:24→16:46)
[2017-07-24] MEDS: FAMOTIDINE/PF 20 MG/2 ML VIAL IV SCH ×2 (09:24→20:19)
[2017-07-24] MEDS: ASPIRIN 81MG TAB.CHEW PO SCH (09:29)
[2017-07-24] MEDS: POTASSIUM CHLORIDE 20 MEQ ERTAB PO SCH ×2 (09:30→20:20)
[2017-07-24] MEDS: BUSPIRONE HCL 5 MG TABLET PO SCH ×2 (09:30→20:19)
[2017-07-24] MEDS: METOPROLOL TARTRATE 50 MG TAB PO SCH ×2 (09:31→21:00)
[2017-07-24 11:11] VITALS: BP 95/43
[2017-07-24 16:18] VITALS: BP 98/57
[2017-07-24] MEDS: WARFARIN SODIUM 2 MG TAB PO SCH (16:45)
[2017-07-24] MEDS: HEPARIN 25000 UNITS/250 ML D5W 250 ML IV SCH (16:50)
[2017-07-24 19:33] VITALS: BP 97/76
[2017-07-24] MEDS: ATORVASTATIN CALCIUM 20 MG TABLET PO SCH (20:20)
[2017-07-24] MEDS: TRAMADOL HCL 50 MG TABLET PO PRN (22:31)
[2017-07-24] MEDS: MUPIROCIN OINTMENT 22 GM TUBE TP SCH (22:32)
[2017-07-24 23:35] VITALS: BP 117/76
[2017-07-25 03:46] VITALS: BP 119/70
[2017-07-25 04:29] LABS: BASOPHILS % (AUTO) 0.8 % (0.0-5.0); EOSINOPHILS % (AUTO) 3.9 % (0.0-8.0); HEMATOCRIT 29.2 % (42-54); LYMPHOCYTES % (AUTO) 28.1 % (21.0-51.0); MEAN CORPUSCULAR HEMOGLOBIN 28.6 pg (27.0-33.0); MEAN CORPUSCULAR HGB CONC 33.7 g/dL (32.0-36.0); MEAN CORPUSCULAR VOLUME 84.9 fL (79-99); MONOCYTES % (AUTO) 9.7 % (3.0-13.0); NEUTROPHILS % (AUTO) 57.5 % (40.0-77.0); NUCLEATED RED BLOOD CELLS 0.1 % (0.0-0.19); PLATELET COUNT (AUTO) 515 K/uL (130-400); RED BLOOD CELL COUNT(AUTO) 3.43 MIL/uL (4.50-6.20); RED CELL DISTRIBUTION WIDTH 13.6 % (11.0-15.5)
[2017-07-25 04:36] LABS: INR 2.55 (0.85-1.15); PROTHROMBIN TIME 26.3 SEC (9.6-11.6)
[2017-07-25] MEDS: IPRATROPIUM/ALBUTEROL SULFATE 3 ML SOLUTION IH SCH ×2 (06:00→13:55)
[2017-07-25] MEDS: ACETYLCYSTEINE 20% 200MG/ML 4ML VIAL IH SCH ×2 (06:00→12:45)
[2017-07-25] MEDS: METOPROLOL TARTRATE 50 MG TAB PO SCH (07:40)
[2017-07-25 07:41] VITALS: BP 99/68
[2017-07-25] MEDS: POTASSIUM CHLORIDE 20 MEQ ERTAB PO SCH (07:41)
[2017-07-25] MEDS: BUSPIRONE HCL 5 MG TABLET PO SCH (07:41)
[2017-07-25] MEDS: FUROSEMIDE 40 MG TABLET PO SCH ×2 (07:41→16:16)
[2017-07-25] MEDS: ASPIRIN 81MG TAB.CHEW PO SCH (07:41)
[2017-07-25] MEDS: FAMOTIDINE/PF 20 MG/2 ML VIAL IV SCH (07:42)
[2017-07-25] MEDS: MUPIROCIN OINTMENT 22 GM TUBE TP SCH (07:43)
[2017-07-25 11:27] VITALS: BP 96/64
[2017-07-25] MEDS ORDERED: WARFARIN SODIUM 10 MG TABLET PO SCH (16:00)
== END 2017-07-25 18:05 | DRG 216 ==
LOC: EDH 07:29 → OBSVTOIN 08:25 → EDHIP 08:25 → 2CH 11:00 → 2CV 14:41 → 2CH 07-13 06:28 → 2BH 07-15 17:58 → 2DH 07-17 19:43
PROVIDERS: ADMIT Internal Medicine; ATTEND Internal Medicine
PROC: B2151ZZ Fluoroscopy of Left Heart using Low Osmolar Contrast (ICD-10-PCS; 2017-07-12)
PROC: B3101ZZ Fluoroscopy of Thoracic Aorta using Low Osmolar Contrast (ICD-10-PCS; 2017-07-12)
PROC: 02100Z9 Bypass Coronary Artery, One Artery from Left Internal Mammary, Open Approach (ICD-10-PCS; principal; 2017-07-12 14:20)
PROC: 02RF0JZ Replacement of Aortic Valve with Synthetic Substitute, Open Approach (ICD-10-PCS; 2017-07-12 14:20)
PROC: 4A023N7 Measurement of Cardiac Sampling and Pressure, Left Heart, Percutaneous Approach (ICD-10-PCS; 2017-07-12 14:20)
PROC: 021009W Bypass Coronary Artery, One Artery from Aorta with Autologous Venous Tissue, Open Approach (ICD-10-PCS; 2017-07-12 14:20)
PROC: 06BP4ZZ Excision of Right Saphenous Vein, Percutaneous Endoscopic Approach (ICD-10-PCS; 2017-07-12 14:20)
PROC: B24BZZ4 Ultrasonography of Heart with Aorta, Transesophageal (ICD-10-PCS; 2017-07-12 14:20)
PROC: B2111ZZ Fluoroscopy of Multiple Coronary Arteries using Low Osmolar Contrast (ICD-10-PCS; 2017-07-12 14:20)
PROC: 5A09457 Assistance with Respiratory Ventilation, 24-96 Consecutive Hours, Continuous Positive Airway Pressure (ICD-10-PCS; 2017-07-14)
PROC: 5A09357 Assistance with Respiratory Ventilation, Less than 24 Consecutive Hours, Continuous Positive Airway Pressure (ICD-10-PCS; 2017-07-16)
PROC: 5A09357 Assistance with Respiratory Ventilation, Less than 24 Consecutive Hours, Continuous Positive Airway Pressure (ICD-10-PCS; 2017-07-17)
PROC: 5A09357 Assistance with Respiratory Ventilation, Less than 24 Consecutive Hours, Continuous Positive Airway Pressure (ICD-10-PCS; 2017-07-17)
DX: I25.119 Atherosclerotic heart disease of native coronary artery with unspecified angina pectoris (principal); J18.9 Pneumonia, unspecified organism; J96.00 Acute respiratory failure, unspecified whether with hypoxia or hypercapnia; E87.3 Alkalosis; J81.1 Chronic pulmonary edema; J90 Pleural effusion, not elsewhere classified; D68.69 Other thrombophilia; I24.8 Other forms of acute ischemic heart disease; D62 Acute posthemorrhagic anemia; E87.1 Hypo-osmolality and hyponatremia; E66.9 Obesity, unspecified; E87.6 Hypokalemia; R73.9 Hyperglycemia, unspecified; R00.1 Bradycardia, unspecified; I10 Essential (primary) hypertension; I35.0 Nonrheumatic aortic (valve) stenosis; J20.9 Acute bronchitis, unspecified; I48.91 Unspecified atrial fibrillation; E78.5 Hyperlipidemia, unspecified; F41.9 Anxiety disorder, unspecified; Z68.30 Body mass index [BMI] 30.0-30.9, adult; Z79.01 Long term (current) use of anticoagulants
CPT/HCPCS: 31720; 36415; 36600; 71045; 71046; 74018; 76998; 80048; 80053; 80061; 80202; 81003; 82330; 82435; 82550; 82553; 82803; 82947; 82948; 83036; 83605; 83735; 83880; 84100; 84132; 84295; 84484; 85018; 85025; 85027; 85347; 85610; 85730; 86850; 86900; 86901; 86922; 87040; 87071; 87088; 87205; 87804; 88305; 88311; 93005; 93306; 93318; 93460; 93567; 93970; 94002; 94003; 94150; 94640; 94660; 94664; 94667; 97039; A4218; A6234; A7048; C1729; C1769; C1894; J0171; J0282; J0610; J0697; J1120; J1644; J1650; J1815; J1940; J2001; J2150; J2185; J2250; J2260; J2270; J2440; J2704; J2710; J2720; J2765; J3010; J3370; J3475; J3480; J3490; J7030; J7040; J7120; J7608; P9045; P9047; Q9967

== ENCOUNTER 2017-08-19 22:26 | Emergency (ER) | payer BC ==
[~2017-08-19 22:26] MED LIST changes: -IOPAMIDOL-370 100 ML VIAL IV ONE
[2017-08-19 23:07] LABS: BASOPHILS % (AUTO) 0.9 % (0.0-5.0); HEMATOCRIT 38.4 % (42-54); LYMPHOCYTES % (AUTO) 26.9 % (21.0-51.0); MEAN CORPUSCULAR HEMOGLOBIN 27.5 pg (27.0-33.0); MEAN CORPUSCULAR HGB CONC 31.5 g/dL (32.0-36.0); MEAN CORPUSCULAR VOLUME 87.5 fL (79-99); MONOCYTES % (AUTO) 7.6 % (3.0-13.0); NEUTROPHILS % (AUTO) 60.6 % (40.0-77.0); PLATELET COUNT (AUTO) 382 K/uL (130-400); RED BLOOD CELL COUNT(AUTO) 4.39 MIL/uL (4.50-6.20); RED CELL DISTRIBUTION WIDTH 14.3 % (11.0-15.5); WHITE BLOOD COUNT (AUTO) 7.4 K/uL (4.8-10.8)
[2017-08-19 23:10] LABS: CARBON DIOXIDE 29 mmol/L (21-32); CHLORIDE 101 mmol/L (101-111); CREATININE 1.4 mg/dL (0.5-1.5); GLOMERULAR FILTR. RATE CALC 57 mL/min (>60); GLUCOSE,RANDOM 112 mg/dL (70-105); POTASSIUM 4.7 mmol/L (3.5-5.1); SODIUM SERUM 140 mmol/L (136-145); UREA NITROGEN, BLOOD 20 mg/dL (7-18)
[2017-08-19 23:12] LABS: INR 2.44 (0.85-1.15); PARTIAL THROMBOPLASTIN TIME 36.2 SEC (26.3-35.5); PROTHROMBIN TIME 25.2 SEC (9.6-11.6)
[2017-08-19 23:24] LABS: ALANINE AMINOTRANSFERASE 35 U/L (12-78); ALBUMIN 3.9 g/dL (3.5-5.0); ASPARTATE AMINOTRANSFERASE 37 U/L (10-37); BILIRUBIN,TOTAL 0.4 mg/dL (0.2-1.0); CREATINE KINASE MB < 0.5 ng/mL (0.5-3.6); CREATINE KINASE, TOTAL 88 U/L (21-232); TOTAL PROTEIN, SERUM 8.1 g/dL (6.0-8.3)
[2017-08-20] MEDS ORDERED: AMIODARONE HCL 900MG/18ML IV ONE (00:48)
[2017-08-20] MEDS ORDERED: AMIODARONE HCL 200 MG TABLET PO ONE (00:48)
[2017-08-20] MEDS ORDERED: SODIUM CHLORIDE 0.9% 500ML 500 ML IV ONE (00:49)
== END 2017-08-20 04:05 | disposition home or self-care (01) ==
LOC: EDH 22:26
DX: R00.2 Palpitations (principal); R03.0 Elevated blood-pressure reading, without diagnosis of hypertension; K59.00 Constipation, unspecified; E78.5 Hyperlipidemia, unspecified; Z98.890 Other specified postprocedural states; Z79.01 Long term (current) use of anticoagulants; Z95.1 Presence of aortocoronary bypass graft
CPT/HCPCS: 36415 ×2; 71046; 80053; 82550; 82553; 83880; 84484 ×2; 85025; 85610; 85730; 93005 ×2; 96361; 96374; 99285; J0282; J7040

== ENCOUNTER 2017-10-01 00:44 | Emergency (ER) | payer BC ==
[~2017-10-01 00:44] MED LIST changes: +ROSU10TA27 PO; -ROSU10TA35 PO
[2017-10-01] MEDS ORDERED: ASPIRIN 325 MG TABLET ONE (01:17)
[2017-10-01] MEDS ORDERED: NITROGLYCERIN 1GM/1 INCH PACKET TD ONE (01:17)
[2017-10-01 01:48] LABS: BASOPHILS % (AUTO) 0.8 % (0.0-5.0); EOSINOPHILS % (AUTO) 2.3 % (0.0-8.0); LYMPHOCYTES % (AUTO) 35.3 % (21.0-51.0); MEAN CORPUSCULAR HEMOGLOBIN 29.3 pg (27.0-33.0); MEAN CORPUSCULAR HGB CONC 34.6 g/dL (32.0-36.0); MEAN CORPUSCULAR VOLUME 84.5 fL (79-99); MONOCYTES % (AUTO) 11.4 % (3.0-13.0); NEUTROPHILS % (AUTO) 50.2 % (40.0-77.0); NUCLEATED RED BLOOD CELLS 0.1 % (0.0-0.19); PLATELET COUNT (AUTO) 287 K/uL (130-400); RED BLOOD CELL COUNT(AUTO) 3.91 MIL/uL (4.50-6.20); RED CELL DISTRIBUTION WIDTH 15.3 % (11.0-15.5)
[2017-10-01 01:54] LABS: INR 1.5 (0.85-1.15); PARTIAL THROMBOPLASTIN TIME 34.5 SEC (26.3-35.5); PROTHROMBIN TIME 15.6 SEC (9.6-11.6)
[2017-10-01 01:55] LABS: CREATININE 1.3 mg/dL (0.5-1.5); POTASSIUM 4.2 mmol/L (3.5-5.1)
[2017-10-01 02:08] LABS: ALBUMIN 3.7 g/dL (3.5-5.0); BILIRUBIN,TOTAL 0.2 mg/dL (0.2-1.0); CREATINE KINASE MB 0.6 ng/mL (0.5-3.6); TOTAL PROTEIN, SERUM 7.6 g/dL (6.0-8.3)
[2017-10-01] MEDS ORDERED: WARFARIN SODIUM 5 MG TAB ONE (03:43)
== END 2017-10-01 03:54 | disposition home or self-care (01) ==
LOC: EDH 00:44
DX: R07.89 Other chest pain (principal); R79.1 Abnormal coagulation profile; R51 Headache; I25.10 Atherosclerotic heart disease of native coronary artery without angina pectoris; E78.5 Hyperlipidemia, unspecified; I10 Essential (primary) hypertension
CPT/HCPCS: 36415; 71045; 80053; 82550; 82553; 83874; 84484; 85025; 85610; 85730; 93005; 94761

== ENCOUNTER 2017-10-30 17:51 | Emergency (ER) | payer BC ==
[2017-10-30 18:12] LABS: EOSINOPHILS % (AUTO) 2.3 % (0.0-8.0); HEMATOCRIT 37.4 % (42-54); LYMPHOCYTES % (AUTO) 34.7 % (21.0-51.0); MEAN CORPUSCULAR HEMOGLOBIN 27.9 pg (27.0-33.0); MEAN CORPUSCULAR HGB CONC 33.1 g/dL (32.0-36.0); MEAN CORPUSCULAR VOLUME 84.4 fL (79-99); MONOCYTES % (AUTO) 8.5 % (3.0-13.0); NEUTROPHILS % (AUTO) 53.5 % (40.0-77.0); PLATELET COUNT (AUTO) 312 K/uL (130-400); RED BLOOD CELL COUNT(AUTO) 4.44 MIL/uL (4.50-6.20); RED CELL DISTRIBUTION WIDTH 15.9 % (11.0-15.5)
[2017-10-30 18:23] LABS: CREATININE 1.2 mg/dL (0.5-1.5); POTASSIUM 4.1 mmol/L (3.5-5.1)
[2017-10-30 18:25] LABS: INR 2.47 (0.85-1.15); PARTIAL THROMBOPLASTIN TIME 38.9 SEC (26.3-35.5); PROTHROMBIN TIME 25.5 SEC (9.6-11.6)
[2017-10-30 18:27] LABS: APPEARANCE,URINE Clear (CLEAR); BILIRUBIN,URINE Negative (NEGATIVE); COLOR,URINE Yellow (YELLOW); GLUCOSE, URINE (UA) Negative (NEGATIVE); KETONES,URINE Negative (NEGATIVE); LEUKOCYTE ESTERASE ,URINE Negative (NEGATIVE); NITRATE,URINE Negative (NEGATIVE); OCCULT BLOOD,URINE Negative (NEGATIVE); PH,URINE 5.5 (5.0-8.0); PROTEIN,URINE Negative (NEGATIVE); UROBILINOGEN,URINE 0.2 mg/dL (0.2-1.0)
[2017-10-30 18:36] LABS: ALBUMIN 4.1 g/dL (3.5-5.0); BILIRUBIN,TOTAL 0.3 mg/dL (0.2-1.0); CREATINE KINASE MB 1.1 ng/mL (0.5-3.6); MAGNESIUM 2.2 mg/dL (1.80-2.40)
[2017-10-30] MEDS ORDERED: LEVOFLOXACIN 500 MG TABLET ONE (20:44)
[2017-10-30] MEDS ORDERED: AZITHROMYCIN 250 MG TABLET PO ONE (20:44)
== END 2017-10-30 21:03 | disposition home or self-care (01) ==
LOC: EDH 17:51
DX: J98.11 Atelectasis (principal); J18.9 Pneumonia, unspecified organism; R79.1 Abnormal coagulation profile; I25.810 Atherosclerosis of coronary artery bypass graft(s) without angina pectoris; E78.5 Hyperlipidemia, unspecified; I10 Essential (primary) hypertension; Z95.1 Presence of aortocoronary bypass graft; Z95.2 Presence of prosthetic heart valve
CPT/HCPCS: 36415; 71045; 71250; 80053; 81003; 82553; 83735; 84484; 85025; 85610; 85730; 93005

== ENCOUNTER 2017-12-05 21:37 | Emergency (ER) | payer BC ==
[2017-12-05 21:47] LABS: BASOPHILS % (AUTO) 1.1 % (0.0-5.0); EOSINOPHILS % (AUTO) 3.6 % (0.0-8.0); HEMATOCRIT 36.1 % (42-54); LYMPHOCYTES % (AUTO) 39.6 % (21.0-51.0); MEAN CORPUSCULAR HEMOGLOBIN 27.9 pg (27.0-33.0); MEAN CORPUSCULAR HGB CONC 33.4 g/dL (32.0-36.0); MEAN CORPUSCULAR VOLUME 83.5 fL (79-99); NEUTROPHILS % (AUTO) 46.7 % (40.0-77.0); PLATELET COUNT (AUTO) 302 K/uL (130-400); RED BLOOD CELL COUNT(AUTO) 4.32 MIL/uL (4.50-6.20); RED CELL DISTRIBUTION WIDTH 15.6 % (11.0-15.5); WHITE BLOOD COUNT (AUTO) 7.9 K/uL (4.8-10.8)
[2017-12-05 21:54] LABS: CREATININE 1.1 mg/dL (0.5-1.5)
[2017-12-05] MEDS ORDERED: ASPIRIN 325 MG TABLET ONE (21:55)
[2017-12-05 21:58] LABS: INR 2.23 (0.85-1.15); PARTIAL THROMBOPLASTIN TIME 35.5 SEC (26.3-35.5); PROTHROMBIN TIME 23.1 SEC (9.6-11.6)
[2017-12-05 22:09] LABS: ALBUMIN 3.7 g/dL (3.5-5.0); BILIRUBIN,TOTAL 0.2 mg/dL (0.2-1.0); CREATINE KINASE MB 0.8 ng/mL (0.5-3.6); TOTAL PROTEIN, SERUM 7.4 g/dL (6.0-8.3)
== END 2017-12-06 01:19 | disposition home or self-care (01) ==
LOC: EDH 21:37
DX: I10 Essential (primary) hypertension (principal); R00.2 Palpitations; I25.10 Atherosclerotic heart disease of native coronary artery without angina pectoris; E78.5 Hyperlipidemia, unspecified; Z95.1 Presence of aortocoronary bypass graft
CPT/HCPCS: 36415; 71045; 80053; 82550; 82553; 83735; 83874; 83880; 84484; 85025; 85610; 85730; 93005; 94761

== ENCOUNTER 2018-03-08 19:27 | Emergency (ER) | payer BC ==
[2018-03-08] MEDS ORDERED: ASPIRIN 325 MG TABLET ONE (20:04)
[2018-03-08] MEDS ORDERED: LIDOCAINE HCL 2% VISCOUS 15 ML UDCUP ONE (20:04)
[2018-03-08] MEDS ORDERED: MAG HYDROX/AL HYDROX/SIMETH ES 30 ML SUSP UDCUP ONE (20:04)
[2018-03-08] MEDS ORDERED: ACETAMINOPHEN-CODEINE ELIXIR 5 ML UDCUP ONE (20:05)
[2018-03-08 20:19] LABS: BASOPHILS % (AUTO) 0.9 % (0.0-5.0); EOSINOPHILS % (AUTO) 2.4 % (0.0-8.0); HEMATOCRIT 34.9 % (42-54); MEAN CORPUSCULAR HEMOGLOBIN 29.6 pg (27.0-33.0); MEAN CORPUSCULAR HGB CONC 33.4 g/dL (32.0-36.0); MEAN CORPUSCULAR VOLUME 88.7 fL (79-99); MONOCYTES % (AUTO) 11.1 % (3.0-13.0); NEUTROPHILS % (AUTO) 42.6 % (40.0-77.0); PLATELET COUNT (AUTO) 286 K/uL (130-400); RED BLOOD CELL COUNT(AUTO) 3.93 MIL/uL (4.50-6.20); RED CELL DISTRIBUTION WIDTH 14.2 % (11.0-15.5); WHITE BLOOD COUNT (AUTO) 6.6 K/uL (4.8-10.8)
[2018-03-08 20:28] LABS: CREATININE 1.2 mg/dL (0.5-1.5)
[2018-03-08 20:30] LABS: INR 1.85 (0.85-1.15); PARTIAL THROMBOPLASTIN TIME 37.3 SEC (26.3-35.5); PROTHROMBIN TIME 19.2 SEC (9.6-11.6)
[2018-03-08 20:37] LABS: B-TYPE NATRIURETIC PEPTIDE 8 pg/mL (0-100)
[2018-03-08 20:49] LABS: ALBUMIN 3.7 g/dL (3.5-5.0); BILIRUBIN,TOTAL 0.3 mg/dL (0.2-1.0); TOTAL PROTEIN, SERUM 7.5 g/dL (6.0-8.3)
== END 2018-03-08 21:36 | disposition home or self-care (01) ==
LOC: EDH 19:27
DX: K21.9 Gastro-esophageal reflux disease without esophagitis (principal); K29.70 Gastritis, unspecified, without bleeding; R07.89 Other chest pain; I25.10 Atherosclerotic heart disease of native coronary artery without angina pectoris; E78.5 Hyperlipidemia, unspecified; I10 Essential (primary) hypertension; Z95.1 Presence of aortocoronary bypass graft
CPT/HCPCS: 36415; 71045; 80053; 82550; 83874; 83880; 84484; 85025; 85610; 85730; 93005; 94761

== ENCOUNTER → 2018-06-12 | Outpatient (CLI) | payer BC | END | disposition home or self-care (01) | LOC: SHCH 10:34 | PROVIDERS: ATTEND Internal Medicine Cardiovascular Disease | DX: I65.22 Occlusion and stenosis of left carotid artery (principal) | CPT/HCPCS: 93880 ==

== ENCOUNTER 2018-06-13 01:35 | Emergency (ER) | payer BC ==
[2018-06-13 02:05] LABS: BASOPHILS % (AUTO) 1.3 % (0.0-5.0); EOSINOPHILS % (AUTO) 7.4 % (0.0-8.0); HEMATOCRIT 37.1 % (42-54); LYMPHOCYTES % (AUTO) 34.8 % (21.0-51.0); MEAN CORPUSCULAR HEMOGLOBIN 28.4 pg (27.0-33.0); MEAN CORPUSCULAR HGB CONC 32.4 g/dL (32.0-36.0); MEAN CORPUSCULAR VOLUME 87.6 fL (79-99); MONOCYTES % (AUTO) 12.5 % (3.0-13.0); NUCLEATED RED BLOOD CELLS 0.1 % (0.0-0.19); PLATELET COUNT (AUTO) 248 K/uL (130-400); RED BLOOD CELL COUNT(AUTO) 4.23 MIL/uL (4.50-6.20); RED CELL DISTRIBUTION WIDTH 13.7 % (11.0-15.5); WHITE BLOOD COUNT (AUTO) 6.6 K/uL (4.8-10.8)
[2018-06-13 02:22] LABS: CREATININE 1.2 mg/dL (0.5-1.5); POTASSIUM 4.1 mmol/L (3.5-5.1)
[2018-06-13 02:28] LABS: ALBUMIN 3.5 g/dL (3.5-5.0); BILIRUBIN,TOTAL 0.3 mg/dL (0.2-1.0); TOTAL PROTEIN, SERUM 6.8 g/dL (6.0-8.3)
[2018-06-13] MEDS ORDERED: SODIUM CHLORIDE 0.9% 500ML 500 ML IV ONE (02:39)
== END 2018-06-13 04:15 | disposition home or self-care (01) ==
LOC: EDH 01:35
DX: R00.2 Palpitations (principal); R00.0 Tachycardia, unspecified; R05 Cough; R42 Dizziness and giddiness; I25.810 Atherosclerosis of coronary artery bypass graft(s) without angina pectoris; E78.5 Hyperlipidemia, unspecified; I10 Essential (primary) hypertension
CPT/HCPCS: 36415; 71046; 80053; 82550; 84484; 85025; 93005; 96360; 96361; 99284; J7040

== ENCOUNTER 2018-12-23 17:02 | Observation (INO) | payer BC ==
[~2018-12-23] VITALS: Ht 185.4 cm; Wt 118.3 kg
[~2018-12-23 17:02] MED LIST changes: -ROSU10TA27 PO; +ROSU10TA28 PO
[2018-12-23 17:21] LABS: APPEARANCE,URINE Clear (CLEAR); BILIRUBIN,URINE Negative (NEGATIVE); COLOR,URINE Yellow (YELLOW); GLUCOSE, URINE (UA) Negative (NEGATIVE); KETONES,URINE Negative (NEGATIVE); LEUKOCYTE ESTERASE ,URINE Negative (NEGATIVE); NITRATE,URINE Negative (NEGATIVE); OCCULT BLOOD,URINE Negative (NEGATIVE); PH,URINE 5.5 (5.0-8.0); PROTEIN,URINE Negative (NEGATIVE); UROBILINOGEN,URINE 0.2 mg/dL (0.2-1.0)
[2018-12-23] MEDS ORDERED: ASPIRIN 81MG TAB.CHEW ONE (17:36)
[2018-12-23 17:37] LABS: BASOPHILS % (AUTO) 1.2 % (0.0-5.0); EOSINOPHILS % (AUTO) 4.5 % (0.0-8.0); MEAN CORPUSCULAR HEMOGLOBIN 29.7 pg (27.0-33.0); MEAN CORPUSCULAR HGB CONC 33.8 g/dL (32.0-36.0); MEAN CORPUSCULAR VOLUME 87.9 fL (79-99); NEUTROPHILS % (AUTO) 52.3 % (40.0-77.0); NUCLEATED RED BLOOD CELLS 0.1 % (0.0-0.19); PLATELET COUNT (AUTO) 279 K/uL (130-400); RED BLOOD CELL COUNT(AUTO) 4.32 MIL/uL (4.50-6.20); WHITE BLOOD COUNT (AUTO) 8.4 K/uL (4.8-10.8)
[2018-12-23 17:51] LABS: INR 1.78 (0.85-1.15); PARTIAL THROMBOPLASTIN TIME 39.2 SEC (26.3-35.5); PROTHROMBIN TIME 18.5 SEC (9.6-11.6)
[2018-12-23 17:58] LABS: CREATININE 1.1 mg/dL (0.5-1.5)
[2018-12-23 18:02] LABS: ALBUMIN 4.1 g/dL (3.5-5.0); BILIRUBIN,TOTAL 0.2 mg/dL (0.2-1.0); TOTAL PROTEIN, SERUM 7.4 g/dL (6.0-8.3)
[2018-12-23] MEDS ORDERED: IOHEXOL 350 MG/ML 100ML INFUS..BTL IV ONE (18:05)
[2018-12-23] MEDS ORDERED: MORPHINE SULFATE 2 MG/ML 1ML SYG IVP PRN (21:30)
[2018-12-23] MEDS ORDERED: ONDANSETRON HCL 4 MG/2 ML VIAL IVP PRN (21:30)
[2018-12-23] MEDS ORDERED: NITROGLYCERIN 0.4 MG SL TAB SL PRN (21:30)
[2018-12-23] MEDS ORDERED: HYDRALAZINE HCL 20 MG/ML VIAL IV PRN (21:45)
[2018-12-23 23:00] VITALS: BP 132/73
[2018-12-23 23:00] LABS: CREATINE KINASE, TOTAL 202 U/L (21-232); MYOGLOBIN 68 ng/mL (10-92); TROPONIN I < 0.04 ng/mL (0.00-0.06)
[2018-12-23] MEDS ORDERED: WARF10TA23 PO ×2 (23:48)
[2018-12-23] MEDS ORDERED: UBID1CAP56 PO (23:48)
[2018-12-23] MEDS ORDERED: ACET-2743 PO (23:48)
[2018-12-23] MEDS ORDERED: ATEN25TA PO (23:48)
[2018-12-23] MEDS ORDERED: ATOR10 PO (23:48)
[2018-12-23] MEDS ORDERED: vit d PO (23:48)
[2018-12-23] MEDS ORDERED: LORA10TA7 PO (23:49)
[2018-12-24 03:00] VITALS: BP 114/69
[2018-12-24 04:25] LABS: CREATINE KINASE, TOTAL 171 U/L (21-232); MYOGLOBIN 75 ng/mL (10-92); TROPONIN I < 0.04 ng/mL (0.00-0.06)
[2018-12-24 07:44] VITALS: BP 130/80
[2018-12-24] MEDS ORDERED: FAMOTIDINE 20MG TAB 20 MG TAB PO SCH (09:00)
[2018-12-24] MEDS ORDERED: ASPIRIN 81MG TAB.CHEW PO SCH (09:00)
[2018-12-24] MEDS ORDERED: WARF-67 PO (11:06)
[2018-12-24 11:31] VITALS: BP 131/69
[2018-12-24 11:46] LABS: CREATINE KINASE, TOTAL 166 U/L (21-232); MYOGLOBIN 68 ng/mL (10-92); TROPONIN I < 0.04 ng/mL (0.00-0.06)
[2018-12-24] MEDS ORDERED: LORATADINE 10 MG TABLET PO PRN (14:30)
[2018-12-24] MEDS ORDERED: ACETAMINOPHEN EXTRA STRENGTH 500 MG TABLET PO PRN (14:30)
[2018-12-24 15:32] VITALS: BP 146/78
[2018-12-24] MEDS ORDERED: WARFARIN SODIUM 5 MG TAB PO SCH (16:00)
--- NOTE | 2018-12-24 17:08 | NUR ---
PT. STATES TOOK OWN HOME MEDICATION FOR COUMADIN TODAY.
[2018-12-24 19:22] VITALS: BP 134/77
[2018-12-24] MEDS ORDERED: ATORVASTATIN CALCIUM 10 MG TABLET PO SCH (21:00)
[2018-12-24] MEDS ORDERED: ATORVASTATIN CALCIUM 20 MG TABLET PO SCH (21:00)
--- NOTE | 2018-12-24 21:10 | NUR ---
PATIENT DISCHARGED TO HOME VIA WHEELCHAIR, ACCOMPANIED BY IN PRIVATE CAR. PATIENT RECEIVED DISCHARGE INSTRUCTIONS AND VERBALIZED UNDERSTANDING.
[2018-12-24] MEDS ORDERED: WARFARIN SODIUM 5 MG TAB PO ONE (21:45)
[2018-12-25] MEDS ORDERED: CHOLECALCIFEROL 5000 MG PO SCH (09:00)
[2018-12-25] MEDS ORDERED: ATENOLOL 25 MG TABLET PO SCH (09:00)
[2018-12-25] MEDS ORDERED: VIT E ACETATE PO SCH (09:00)
[2018-12-25] MEDS ORDERED: UBIDECARENONE PO SCH (09:00)
[2018-12-25] MEDS ORDERED: ASPIRIN 81 MG EC TAB PO SCH (09:00)
[2018-12-25] MEDS ORDERED: MULTIVITAMIN TABLET PO SCH (09:00)
[2018-12-28] MEDS ORDERED: WARFARIN SODIUM 2 MG TAB PO SCH ×2 (09:00→16:00)
== END 2018-12-24 21:10 | disposition home or self-care (01) ==
LOC: EDH 17:02 → EDHIP 21:25 → 2AH 23:12
PROVIDERS: ADMIT Internal Medicine; ATTEND Internal Medicine
DX: R07.89 Other chest pain (principal); E78.5 Hyperlipidemia, unspecified; I11.0 Hypertensive heart disease with heart failure; I50.42 Chronic combined systolic (congestive) and diastolic (congestive) heart failure; I35.0 Nonrheumatic aortic (valve) stenosis; Z79.01 Long term (current) use of anticoagulants; Z95.1 Presence of aortocoronary bypass graft; Z95.2 Presence of prosthetic heart valve; Z79.899 Other long term (current) drug therapy; Z82.5 Family history of asthma and other chronic lower respiratory diseases
CPT/HCPCS: 36415 ×2; 71045; 71275; 80053; 81003; 82550 ×3; 83874 ×3; 83880; 84484 ×5; 85025; 85378; 85610; 85730; 93005; 93970; 99283; G0378 ×24; Q9967

== ENCOUNTER 2019-03-11 22:32 | Emergency (ER) | payer BC ==
[~2019-03-11 22:32] MED LIST changes: +ACET-2743 PO; +ATEN25TA PO; +ATOR10 PO; -ICOS1CAP PO; -LORA10CA9 PO; +LORA10TA7 PO; -ROSU10TA28 PO; +UBID1CAP56 PO; +WARF-67 PO; +WARF10TA23 PO; -[UNRECOGNIZED DRUG - OTHER] PO; +vit d PO
[2019-03-11 23:08] LABS: POTASSIUM 4.6 mmol/L (3.5-5.1)
[2019-03-11 23:09] LABS: BASOPHILS % (AUTO) 0.8 % (0.0-5.0); EOSINOPHILS % (AUTO) 3.2 % (0.0-8.0); HEMATOCRIT 36.1 % (42-54); LYMPHOCYTES % (AUTO) 35.9 % (21.0-51.0); MEAN CORPUSCULAR HEMOGLOBIN 29.3 pg (27.0-33.0); MEAN CORPUSCULAR HGB CONC 33.6 g/dL (32.0-36.0); MEAN CORPUSCULAR VOLUME 87.3 fL (79-99); MONOCYTES % (AUTO) 9.5 % (3.0-13.0); NEUTROPHILS % (AUTO) 50.6 % (40.0-77.0); PLATELET COUNT (AUTO) 264 K/uL (130-400); RED BLOOD CELL COUNT(AUTO) 4.13 MIL/uL (4.50-6.20); RED CELL DISTRIBUTION WIDTH 13.9 % (11.0-15.5); WHITE BLOOD COUNT (AUTO) 7.3 K/uL (4.8-10.8)
[2019-03-11 23:19] LABS: CREATININE 1.1 mg/dL (0.5-1.5)
[2019-03-11 23:24] LABS: INR 2.23 (0.85-1.15); PARTIAL THROMBOPLASTIN TIME 39.8 SEC (26.3-35.5); PROTHROMBIN TIME 22.7 SEC (9.6-11.6)
== END 2019-03-12 01:58 | disposition home or self-care (01) ==
LOC: EDH 22:32
DX: S80.01XA Contusion of right knee, initial encounter (principal); L03.115 Cellulitis of right lower limb; I25.810 Atherosclerosis of coronary artery bypass graft(s) without angina pectoris; E78.5 Hyperlipidemia, unspecified; I10 Essential (primary) hypertension; W22.8XXA Striking against or struck by other objects, initial encounter; Y93.89 Activity, other specified; Y92.098 Other place in other non-institutional residence as the place of occurrence of the external cause; Y99.8 Other external cause status
CPT/HCPCS: 36415; 73590; 80048; 85025; 85610; 85730; 93971

== ENCOUNTER → 2019-05-02 | Outpatient (CLI) | payer BC | END | disposition home or self-care (01) | LOC: RAH 14:45 | PROVIDERS: ATTEND Family Medicine | DX: R60.0 Localized edema (principal); I11.0 Hypertensive heart disease with heart failure; I50.32 Chronic diastolic (congestive) heart failure | CPT/HCPCS: 93971 ==

== ENCOUNTER 2019-05-19 18:00 | Observation (INO) | payer BC ==
[~2019-05-19] VITALS: Ht 185.4 cm; Wt 106.6 kg
[2019-05-19 18:47] LABS: BASOPHILS % (AUTO) 0.7 % (0.0-5.0); EOSINOPHILS % (AUTO) 2.3 % (0.0-8.0); HEMATOCRIT 37.7 % (42-54); LYMPHOCYTES % (AUTO) 24.6 % (21.0-51.0); MEAN CORPUSCULAR HGB CONC 33.1 g/dL (32.0-36.0); MEAN CORPUSCULAR VOLUME 87.6 fL (79-99); MONOCYTES % (AUTO) 9.3 % (3.0-13.0); NEUTROPHILS % (AUTO) 63.1 % (40.0-77.0); NUCLEATED RED BLOOD CELLS 0.1 % (0.0-0.19); PLATELET COUNT (AUTO) 262 K/uL (130-400); RED BLOOD CELL COUNT(AUTO) 4.31 MIL/uL (4.50-6.20); RED CELL DISTRIBUTION WIDTH 13.8 % (11.0-15.5); WHITE BLOOD COUNT (AUTO) 8.2 K/uL (4.8-10.8)
[2019-05-19 19:05] LABS: CREATININE 1.1 mg/dL (0.5-1.5)
[2019-05-19 19:08] LABS: INR 2.63 (0.85-1.15); PARTIAL THROMBOPLASTIN TIME 40.9 SEC (26.3-35.5); PROTHROMBIN TIME 26.6 SEC (9.6-11.6)
[2019-05-19 19:23] LABS: B-TYPE NATRIURETIC PEPTIDE 13 pg/mL (0-100)
[2019-05-19] MEDS ORDERED: ONDANSETRON HCL 4 MG/2 ML VIAL IV PRN (21:30)
[2019-05-19] MEDS ORDERED: ACETAMINOPHEN 325 MG TAB PO PRN ×2 (21:30)
[2019-05-19] MEDS ORDERED: NITROGLYCERIN 1GM/1 INCH PACKET TD PRN (21:30)
[2019-05-19 22:35] VITALS: BP 126/84
[2019-05-19] MEDS ORDERED: WARF10TA45 PO (23:01)
[2019-05-19] MEDS ORDERED: ACET-2743 PO (23:04)
[2019-05-19] MEDS ORDERED: MULT-1082 PO (23:15)
--- NOTE | 2019-05-20 00:23 | NUR ---
HOME MEDS COMPLETD LISTING HOME MEDICATIONS, PAGED ONCALL FOR HOSPITALIST. NOTIFIED Micheal COLON NP TO REVIEW.
[2019-05-20] MEDS ORDERED: MORPHINE SULFATE 2 MG/ML 1ML SYG IVP PRN (01:15)
[2019-05-20 04:00] VITALS: BP 117/69
[2019-05-20 05:08] LABS: EOSINOPHILS % (AUTO) 3.8 % (0.0-8.0); LYMPHOCYTES % (AUTO) 35.7 % (21.0-51.0); MEAN CORPUSCULAR HEMOGLOBIN 28.8 pg (27.0-33.0); MEAN CORPUSCULAR HGB CONC 32.7 g/dL (32.0-36.0); MONOCYTES % (AUTO) 10.9 % (3.0-13.0); NEUTROPHILS % (AUTO) 48.6 % (40.0-77.0); NUCLEATED RED BLOOD CELLS 0.1 % (0.0-0.19); PLATELET COUNT (AUTO) 255 K/uL (130-400); RED BLOOD CELL COUNT(AUTO) 4.32 MIL/uL (4.50-6.20); RED CELL DISTRIBUTION WIDTH 13.9 % (11.0-15.5); WHITE BLOOD COUNT (AUTO) 6.4 K/uL (4.8-10.8)
[2019-05-20 05:21] LABS: HEMOGLOBIN A1C 5.9 % (4.0-6.0)
[2019-05-20 05:31] LABS: INR 2.61 (0.85-1.15); PROTHROMBIN TIME 26.4 SEC (9.6-11.6)
[2019-05-20 05:49] LABS: ALBUMIN 3.3 g/dL (3.5-5.0); BILIRUBIN,TOTAL 0.4 mg/dL (0.2-1.0); CREATININE 1.1 mg/dL (0.5-1.5); POTASSIUM 4.6 mmol/L (3.5-5.1); THYROID STIMULATING HORMONE 1.07 uIU/mL (0.36-3.74); TOTAL PROTEIN, SERUM 7.1 g/dL (6.0-8.3)
[2019-05-20] MEDS ORDERED: NITROGLYCERIN 1GM/1 INCH PACKET TD PRN (06:45)
[2019-05-20 07:53] VITALS: BP 120/72
[2019-05-20] MEDS: FAMOTIDINE 20MG TAB 20 MG TAB PO SCH ×2 (09:37→22:52)
[2019-05-20 12:00] VITALS: BP 129/85
--- NOTE | 2019-05-20 13:05 | NUR ---
INITIAL CM ASSESSMENT MET W PT, ALONE, AAOX3, LIVES W [facility] WHO WILL PROVIDE TRANSPORT HOME; IDNP OF [facility], NO DME// HH/ PROVIDER, [facility] IS HOME HERE FOR CHEST PAIN/ANGINA- AWAITING CARDIOLOGY CONSULT/NURY IN AM Addendum: 05/20/19 at 1749 by LANDY LEON RN CM Amended: Links added.
[2019-05-20 16:00] VITALS: BP 121/77
[2019-05-20] MEDS ORDERED: WARFARIN SODIUM 10 MG TABLET PO SCH (16:00)
[2019-05-20] MEDS ORDERED: WARFARIN SODIUM 1 MG TAB PO SCH (16:00)
[2019-05-20] MEDS ORDERED: LORATADINE 10 MG TABLET PO SCH (17:00)
[2019-05-20] MEDS ORDERED: VIT D PO SCH (17:00)
[2019-05-20] MEDS ORDERED: MULTIVITAMIN WITH MINERALS TABLET PO SCH (17:00)
[2019-05-20 19:00] VITALS: BP 129/87
[2019-05-20] MEDS ORDERED: ATENOLOL 25 MG TABLET PO SCH (21:00)
[2019-05-20] MEDS ORDERED: ASPIRIN 81 MG EC TAB PO SCH (21:00)
[2019-05-20] MEDS ORDERED: ATORVASTATIN CALCIUM 10 MG TABLET PO SCH (21:00)
[2019-05-20] MEDS ORDERED: CO Q PO SCH (21:00)
[2019-05-20 23:30] VITALS: BP 127/81
[2019-05-21 04:00] VITALS: BP 109/73
--- NOTE | 2019-05-21 07:40 | NUR ---
NOTE AAOX3. DNEIES PAIN OR DISCOMFORT TELEMETRY SR. HE CAME IN WITH C/O CHEST PAIN. ENZYMES HAVE BEEN NEGATIVE AND HAD 2D ECHO DONE YESTERDAY AND WITH STRESS TEST SCHEDULED FOR TODAY. IF ALL NEGATIVE HE NIGHT GO HOME THIS AFTERNOON. NO DISTRESS OR SOB REPORTED OR NOTED. BBS CLEAR TO ALL LOBES WITH FAINT BRUIT WITH AUSCULTATION OF HEART SOUNDS. BLE WITH 2+ PITTING EDEMA WITH RIGHT LEG MORE SWOLLEN THAN LEFT. SLIGHT DARKER REDDISH DISCOLORATION TO RIGHT LIND AREA.
[2019-05-21] MEDS ORDERED: REGADENOSON 0.4 MG/5 ML PF SYG IVP SCH (07:45)
[2019-05-21 07:54] VITALS: BP 112/70
[2019-05-21] MEDS: FAMOTIDINE 20MG TAB 20 MG TAB PO SCH (13:40)
[2019-05-21 13:50] VITALS: BP 126/76
--- NOTE | 2019-05-21 14:00 | NUR ---
NOTE PATIENT COMPLETED STRESS TEST AND HAS BEEN RESTARTED ON DIET. STATES HE FEELS TIRED FROM PROCEDURE BUT DENIES ANY CHEST PAIN OR OTHER DISCOMFORT JUST TIRED. WILL WAIT FOR RESULTS AND PAGE SPA MANAGER/ESTHETICIAN TO RELAY THEM THE FINDINGS.
[2019-05-21] MEDS ORDERED: WARFARIN SODIUM 1 MG TAB PO SCH (16:00)
[2019-05-21 16:27] VITALS: BP 130/83
--- NOTE | 2019-05-21 17:27 | NUR ---
NOTE DISCHARGE INSTRUCTIONS GIVEN AT THIS TIME. REFER TO DC SUMMARY FOR DETAILS.
[2019-05-22] MEDS ORDERED: WARFARIN SODIUM 10 MG TABLET PO SCH (16:00)
== END 2019-05-21 17:43 | disposition home or self-care (01) ==
LOC: EDH 18:00 → EDHIP 21:19 → 4CH 22:38
PROVIDERS: ADMIT Hospitalist; ATTEND Hospitalist
DX: R07.89 Other chest pain (principal); I25.119 Atherosclerotic heart disease of native coronary artery with unspecified angina pectoris; I10 Essential (primary) hypertension; E66.9 Obesity, unspecified; E78.5 Hyperlipidemia, unspecified; Z87.891 Personal history of nicotine dependence; Z95.3 Presence of xenogenic heart valve; Z95.1 Presence of aortocoronary bypass graft; Z79.82 Long term (current) use of aspirin; Z79.01 Long term (current) use of anticoagulants; Z79.899 Other long term (current) drug therapy; Z68.31 Body mass index [BMI] 31.0-31.9, adult
CPT/HCPCS: 36415 ×2; 71045; 78452; 80048; 80053; 80061; 82550; 83036; 83880; 84443; 84484 ×3; 85025 ×2; 85610 ×2; 85730; 93005; 93017; 93306; 99291; A9500 ×2; G0378 ×42; J2785; 96374

== ENCOUNTER → 2019-09-03 | Outpatient (CLI) | payer BC ==
[~2019-09-03] MED LIST changes: +MULT-1082 PO; -MULT-1192 PO; -WARF-67 PO; -WARF10TA23 PO; +WARF10TA45 PO
== END | disposition home or self-care (01) ==
LOC: RAH 13:29
PROVIDERS: ATTEND Internal Medicine Cardiovascular Disease
DX: I70.203 Unspecified atherosclerosis of native arteries of extremities, bilateral legs (principal); I87.2 Venous insufficiency (chronic) (peripheral)
CPT/HCPCS: 93925; 93970

== ENCOUNTER 2020-07-14 14:31 | Observation (INO) | payer BC ==
[2020-07-14] MEDS ORDERED: ASPIRIN 325 MG TABLET ONE (14:59)
[2020-07-14 15:06] LABS: BASOPHILS % (AUTO) 0.7 % (0.0-5.0); EOSINOPHILS % (AUTO) 3.1 % (0.0-8.0); HEMATOCRIT 40.6 % (42-54); LYMPHOCYTES % (AUTO) 33.9 % (21.0-51.0); MEAN CORPUSCULAR HEMOGLOBIN 28.6 pg (27.0-33.0); MEAN CORPUSCULAR HGB CONC 31.3 g/dL (32.0-36.0); MEAN CORPUSCULAR VOLUME 91.4 fL (79-99); MONOCYTES % (AUTO) 10.1 % (3.0-13.0); NEUTROPHILS % (AUTO) 52.1 % (40.0-77.0); PLATELET COUNT (AUTO) 263 K/uL (130-400); RED BLOOD CELL COUNT(AUTO) 4.44 MIL/uL (4.50-6.20); RED CELL DISTRIBUTION WIDTH 13.5 % (11.0-15.5)
[2020-07-14 15:13] LABS: CREATININE 1.2 mg/dL (0.5-1.5); POTASSIUM 4.1 mmol/L (3.5-5.1)
[2020-07-14 15:17] LABS: BILIRUBIN,TOTAL 0.5 mg/dL (0.2-1.0)
[2020-07-14 15:18] LABS: INR 2.25 (0.85-1.15); PROTHROMBIN TIME 22.4 SEC (9.6-11.6)
[2020-07-14 15:19] LABS: PARTIAL THROMBOPLASTIN TIME 38.2 SEC (26.3-35.5)
[2020-07-14] MEDS ORDERED: ONDANSETRON 4MG INJ ONE (17:42)
[2020-07-14] MEDS ORDERED: MORPHINE 4 MG SYG ONE (17:42)
[2020-07-14] MEDS ORDERED: MORPHINE 2 MG SYG IV PRN (18:30)
[2020-07-14] MEDS ORDERED: NITROGLYCERIN 1GM OINT 1 INCH/1GM TD SCH (18:30)
[2020-07-14] MEDS ORDERED: ONDANSETRON 4MG INJ IV PRN (18:30)
[2020-07-14] MEDS ORDERED: ACETAMINOPHEN 325 MG TAB PO PRN ×2 (18:30)
[2020-07-14 18:52] LABS: HEMOGLOBIN A1C 6.1 % (4.0-6.0)
[2020-07-14 19:09] LABS: THYROID STIMULATING HORMONE 1.02 uIU/mL (0.36-3.74)
[2020-07-14 19:18] LABS: APPEARANCE,URINE Clear (CLEAR); BILIRUBIN,URINE Negative (NEGATIVE); COLOR,URINE Yellow (YELLOW); GLUCOSE, URINE (UA) Negative (NEGATIVE); KETONES,URINE Negative (NEGATIVE); LEUKOCYTE ESTERASE ,URINE Negative (NEGATIVE); NITRATE,URINE Negative (NEGATIVE); OCCULT BLOOD,URINE Negative (NEGATIVE); PH,URINE 5.5 (5.0-8.0); PROTEIN,URINE Negative (NEGATIVE); UROBILINOGEN,URINE 0.2 mg/dL (0.2-1.0)
[2020-07-14] MEDS ORDERED: FAMOTIDINE 20MG VIAL IV SCH (21:00)
[2020-07-14] MEDS ORDERED: METOPROLOL TARTRATE 25 MG TAB PO SCH (21:00)
[2020-07-14] MEDS ORDERED: NITROGLYCERIN 1GM OINT 1 INCH/1GM TD ONE (21:43)
[2020-07-14] MEDS ORDERED: METOPROLOL TARTRATE 25 MG TAB ONE (22:43)
[2020-07-14] MEDS ORDERED: FAMOTIDINE 20MG VIAL IV ONE (22:44)
[2020-07-15 03:34] LABS: CREATINE KINASE, TOTAL 204 U/L (21-232); MYOGLOBIN 64 ng/mL (10-92); TROPONIN I < 0.04 ng/mL (0.00-0.06)
[2020-07-15 04:05] LABS: CHOLESTEROL 161 mg/dL (<200); HDL CHOLESTEROL 58 mg/dL (29-71); LDL DIRECT 81 mg/dL (0-99); TRIGLYCERIDES 207 mg/dL (30-200)
[2020-07-15] MEDS ORDERED: ASPIRIN 325 MG TABLET ONE (08:39)
[2020-07-15] MEDS ORDERED: FAMOTIDINE 20MG VIAL IV ONE (08:40)
[2020-07-15] MEDS ORDERED: ENOXAPARIN SODIUM 40 MG/0.4 ML SYRINGE SQ ONE (08:40)
[2020-07-15] MEDS ORDERED: ASPIRIN 325 MG TABLET PO SCH (09:00)
[2020-07-15] MEDS ORDERED: ENOXAPARIN SODIUM 40 MG/0.4 ML SYRINGE SQ SCH (09:00)
[2020-07-15] MEDS ORDERED: NITROGLYCERIN 1GM OINT 1 INCH/1GM TD ONE (11:00)
[2020-07-15 11:28] LABS: CREATINE KINASE, TOTAL 227 U/L (21-232); MYOGLOBIN 91 ng/mL (10-92); TROPONIN I < 0.04 ng/mL (0.00-0.06)
[2020-07-15 14:03] LABS: CREATININE 1.1 mg/dL (0.5-1.5); POTASSIUM 4.4 mmol/L (3.5-5.1)
[2020-07-15] MEDS ORDERED: WARFARIN SODIUM 10 MG TABLET PO SCH (16:00)
[2020-07-16] MEDS ORDERED: WARFARIN SODIUM 10 MG TABLET PO SCH ×2 (16:00)
[2020-07-16] MEDS ORDERED: WARFARIN SODIUM 2 MG TAB PO SCH (16:00)
[2020-07-17] MEDS ORDERED: WARFARIN SODIUM 10 MG TABLET PO SCH (16:00)
[2020-07-18] MEDS ORDERED: WARFARIN SODIUM 10 MG TABLET PO ONE (16:00)
== END 2020-07-15 17:25 | disposition home or self-care (01) ==
LOC: EDH 14:31 → EDHIP 18:29
PROVIDERS: ADMIT Internal Medicine; ATTEND Internal Medicine
DX: R07.89 Other chest pain (principal); Z20.828 Contact with and (suspected) exposure to other viral communicable diseases; I10 Essential (primary) hypertension; E78.5 Hyperlipidemia, unspecified; I25.119 Atherosclerotic heart disease of native coronary artery with unspecified angina pectoris; I35.0 Nonrheumatic aortic (valve) stenosis; Z95.1 Presence of aortocoronary bypass graft; Z95.2 Presence of prosthetic heart valve; Z79.01 Long term (current) use of anticoagulants; Z79.82 Long term (current) use of aspirin; Z79.899 Other long term (current) drug therapy
CPT/HCPCS: 36415 ×2; 71045; 80048; 80053; 80061; 81003; 82550 ×4; 83036; 83874 ×3; 83880; 84443; 84484 ×4; 85025; 85610; 85730; 87426; 93005 ×4; 99291; G0378 ×22; J1650; J2270; J2405; J3490 ×2; U0003

== ENCOUNTER 2020-12-01 22:53 | Observation (INO) | payer BC ==
[~2020-12-01] VITALS: Ht 185.4 cm; Wt 129.8 kg
[2020-12-01 22:59] VITALS: BP 108/58
[2020-12-01] MEDS ORDERED: ASPIRIN 325 MG TABLET PO ONE (23:00)
[2020-12-01] MEDS ORDERED: FAMOTIDINE 20MG VIAL IV ONE (23:30)
[2020-12-01] MEDS ORDERED: PANTOPRAZOLE 40 MG/VIAL IVP SCH (23:30)
[2020-12-01 23:38] LABS: BASOPHILS % (AUTO) 0.6 % (0.0-5.0); EOSINOPHILS % (AUTO) 2.9 % (0.0-8.0); HEMATOCRIT 40.2 % (42-54); LYMPHOCYTES % (AUTO) 34.9 % (21.0-51.0); MEAN CORPUSCULAR HEMOGLOBIN 29.2 pg (27.0-33.0); MEAN CORPUSCULAR HGB CONC 31.3 g/dL (32.0-36.0); MEAN CORPUSCULAR VOLUME 93.3 fL (79-99); MONOCYTES % (AUTO) 10.5 % (3.0-13.0); NEUTROPHILS % (AUTO) 50.8 % (40.0-77.0); PLATELET COUNT (AUTO) 246 K/uL (130-400); RED BLOOD CELL COUNT(AUTO) 4.31 MIL/uL (4.50-6.20); RED CELL DISTRIBUTION WIDTH 13.5 % (11.0-15.5); WHITE BLOOD COUNT (AUTO) 7.2 K/uL (4.8-10.8)
[2020-12-01 23:54] LABS: INR 1.82 (0.85-1.15); PROTHROMBIN TIME 18.8 SEC (9.6-11.6)
[2020-12-01 23:59] LABS: ALANINE AMINOTRANSFERASE 41 U/L (12-78); ALBUMIN 3.6 g/dL (3.5-5.0); ASPARTATE AMINOTRANSFERASE 32 U/L (10-37); BILIRUBIN,TOTAL 0.3 mg/dL (0.2-1.0); CARBON DIOXIDE 28 mmol/L (21-32); CHLORIDE 101 mmol/L (101-111); CREATINE KINASE, TOTAL 202 U/L (21-232); CREATININE 1.1 mg/dL (0.5-1.5); GLOMERULAR FILTR. RATE CALC 75 mL/min (>60); GLUCOSE,RANDOM 119 mg/dL (70-105); LIPASE 163 U/L (114-286); MYOGLOBIN 52 ng/mL (10-92); POTASSIUM 4.1 mmol/L (3.5-5.1); SODIUM SERUM 139 mmol/L (136-145); TOTAL PROTEIN, SERUM 7.5 g/dL (6.0-8.3); TROPONIN I < 0.04 ng/mL (0.00-0.06); UREA NITROGEN, BLOOD 19 mg/dL (7-18)
[2020-12-02] VITALS (8 sets, daily range): BP systolic 109–131; BP diastolic 52–83
[2020-12-02 00:06] LABS: B-TYPE NATRIURETIC PEPTIDE 18 pg/mL (0-100)
[2020-12-02] MEDS ORDERED: ASPIRIN 325 MG TABLET ONE (00:37)
[2020-12-02] MEDS ORDERED: FAMOTIDINE 20MG VIAL IV ONE (00:38)
[2020-12-02] MEDS ORDERED: NITROGLYCERIN 0.4 MG SL TAB SL PRN (02:15)
[2020-12-02] MEDS ORDERED: ONDANSETRON 4MG INJ IV PRN (02:15)
[2020-12-02] MEDS ORDERED: ACETAMINOPHEN 325 MG TAB PO PRN ×2 (02:15)
[2020-12-02 07:36] LABS: INR 1.94 (0.85-1.15); PROTHROMBIN TIME 19.9 SEC (9.6-11.6)
[2020-12-02 07:44] LABS: CHOLESTEROL 172 mg/dL (<200); CREATINE KINASE, TOTAL 161 U/L (21-232); HDL CHOLESTEROL 47 mg/dL (29-71); LDL DIRECT 87 mg/dL (0-99); MYOGLOBIN 71 ng/mL (10-92); TRIGLYCERIDES 258 mg/dL (30-200); TROPONIN I < 0.04 ng/mL (0.00-0.06)
[2020-12-02 08:24] LABS: APPEARANCE,URINE Clear (CLEAR); BILIRUBIN,URINE Negative (NEGATIVE); COLOR,URINE Yellow (YELLOW); GLUCOSE, URINE (UA) Negative (NEGATIVE); KETONES,URINE Negative (NEGATIVE); LEUKOCYTE ESTERASE ,URINE Negative (NEGATIVE); NITRATE,URINE Negative (NEGATIVE); OCCULT BLOOD,URINE Trace (NEGATIVE); PROTEIN,URINE Negative (NEGATIVE)
[2020-12-02] MEDS: ASPIRIN 81 MG EC TAB PO SCH (09:00)
[2020-12-02] MEDS: ENOXAPARIN SODIUM 30 MG/0.3 ML SQ SCH (09:00)
[2020-12-02] MEDS: FAMOTIDINE 20MG TAB PO SCH ×2 (09:00→21:14)
[2020-12-02 09:04] LABS: BACTERIA,URINE Rare /HPF (None Seen); RBC,URINE 0-1 /HPF (0-1); SQUAMOUS EPITHELIAL CELL,UR Rare /HPF (0-2); WBC,URINE 0-1 /HPF (0-1)
[2020-12-02] MEDS ORDERED: OMEG-184 PO (09:30)
[2020-12-02 13:07] LABS: CREATINE KINASE, TOTAL 156 U/L (21-232); MYOGLOBIN 78 ng/mL (10-92); TROPONIN I < 0.04 ng/mL (0.00-0.06)
[2020-12-03 03:55] VITALS: BP 120/73
[2020-12-03 05:04] LABS: BASOPHILS % (AUTO) 0.8 % (0.0-5.0); EOSINOPHILS % (AUTO) 3.5 % (0.0-8.0); HEMATOCRIT 42.2 % (42-54); LYMPHOCYTES % (AUTO) 31.2 % (21.0-51.0); MEAN CORPUSCULAR HEMOGLOBIN 28.1 pg (27.0-33.0); MEAN CORPUSCULAR VOLUME 90.6 fL (79-99); MONOCYTES % (AUTO) 12.8 % (3.0-13.0); NEUTROPHILS % (AUTO) 51.4 % (40.0-77.0); PLATELET COUNT (AUTO) 244 K/uL (130-400); RED BLOOD CELL COUNT(AUTO) 4.66 MIL/uL (4.50-6.20); RED CELL DISTRIBUTION WIDTH 13.6 % (11.0-15.5); WHITE BLOOD COUNT (AUTO) 6.7 K/uL (4.8-10.8)
[2020-12-03 05:12] LABS: ALBUMIN 3.5 g/dL (3.5-5.0); BILIRUBIN,TOTAL 0.3 mg/dL (0.2-1.0); CREATININE 1.1 mg/dL (0.5-1.5); MAGNESIUM 2.1 mg/dL (1.80-2.40); POTASSIUM 4.8 mmol/L (3.5-5.1); TOTAL PROTEIN, SERUM 7.6 g/dL (6.0-8.3)
[2020-12-03 05:18] LABS: INR 2.13 (0.85-1.15); PROTHROMBIN TIME 21.7 SEC (9.6-11.6)
[2020-12-03] MEDS ORDERED: WARF10TA45 PO (05:28)
[2020-12-03 08:00] VITALS: BP 129/73
[2020-12-03] MEDS: ENOXAPARIN SODIUM 30 MG/0.3 ML SQ SCH (08:55)
[2020-12-03] MEDS: ASPIRIN 81 MG EC TAB PO SCH (08:56)
[2020-12-03] MEDS: FAMOTIDINE 20MG TAB PO SCH (08:56)
[2020-12-03] MEDS ORDERED: REGADENOSON 0.4 MG/5 ML PF SYG IVP SCH (10:15)
[2020-12-03 12:00] VITALS: BP 110/82
[2020-12-03 16:00] VITALS: BP 150/76
== END 2020-12-03 18:00 | disposition home or self-care (01) ==
LOC: EDH 22:53 → EDHIP 12-02 02:04 → 3DH 12-02 21:39
PROVIDERS: ADMIT Internal Medicine; ATTEND Internal Medicine
DX: I25.110 Atherosclerotic heart disease of native coronary artery with unstable angina pectoris (principal); Z20.822 Contact with and (suspected) exposure to COVID-19; I10 Essential (primary) hypertension; E78.5 Hyperlipidemia, unspecified; I35.0 Nonrheumatic aortic (valve) stenosis; I87.2 Venous insufficiency (chronic) (peripheral); E66.9 Obesity, unspecified; I25.2 Old myocardial infarction; Z95.1 Presence of aortocoronary bypass graft; Z95.2 Presence of prosthetic heart valve; Z79.01 Long term (current) use of anticoagulants; Z79.899 Other long term (current) drug therapy; Z68.37 Body mass index [BMI] 37.0-37.9, adult
CPT/HCPCS: 36415 ×3; 71045; 78452; 80053 ×2; 80061; 81001; 82550 ×3; 83690; 83735 ×2; 83874 ×3; 83880; 84484 ×3; 85025 ×2; 85610 ×3; 87635; 93005 ×2; 93017; 96372; 96374; 96375; 99285; A9500 ×2; C9113; G0378 ×37; J1650; J2785; J3490

== ENCOUNTER 2021-05-10 06:26 | Day surgery (SDC) | payer BC ==
[~2021-05-10 06:26] MED LIST changes: +0.9%NACL 1000ML 1,000 ML IV ONE; -ACET-2743 PO; -LORA10TA7 PO; +OMEG-184 PO
[2021-05-10 06:40] VITALS: BP 105/70
[2021-05-10] MEDS ORDERED: ADVAIR IH (07:13)
[2021-05-10] MEDS ORDERED: PROPOFOL 10 MG/ML 20ML VIAL IV ONE ×5 (07:45→08:51)
[2021-05-10] MEDS ORDERED: LIDOCAINE HCL 400MG/20ML VIAL ONE (07:45)
[2021-05-10] MEDS ORDERED: EPHEDRINE SULFATE 50 MG/ML AMPULE ONE (07:58)
[2021-05-10] MEDS ORDERED: PHENYLEPHRINE HCL 10 MG/ML 1ML VIAL IV ONE ×2 (08:26→09:02)
[2021-05-10] MEDS ORDERED: 0.9%NACL 10ML VIAL ONE (09:02)
[2021-05-10 09:21] VITALS: BP 109/52
[2021-05-10 09:26] VITALS: BP 117/72
[2021-05-10 09:31] VITALS: BP 116/72
[2021-05-10 09:36] VITALS: BP 116/56
== END 2021-05-10 09:41 | disposition home or self-care (01) ==
LOC: ENDO 06:26 → DAH 06:26 → ENDO 09:41
PROVIDERS: ATTEND Internal Medicine Gastroenterology
DX: Z12.11 Encounter for screening for malignant neoplasm of colon (principal); Z20.822 Contact with and (suspected) exposure to COVID-19; K63.5 Polyp of colon; K64.8 Other hemorrhoids; I10 Essential (primary) hypertension; E78.5 Hyperlipidemia, unspecified; Z98.890 Other specified postprocedural states; Z95.1 Presence of aortocoronary bypass graft; Z80.0 Family history of malignant neoplasm of digestive organs
CPT/HCPCS: 45380; 87635; 93005; A4215 ×2; A4221; A4222; A4223; A4606; A4620; A4663; C9803; J2370 ×2; J2704 ×5; J3490 ×2; J7030

== ENCOUNTER 2022-08-20 16:45 | Emergency (ER) | payer BC, OTHER ==
[~2022-08-20] VITALS: Ht 185.4 cm; Wt 134.3 kg
[~2022-08-20 16:45] MED LIST changes: -0.9%NACL 1000ML 1,000 ML IV ONE; +ADVAIR IH
[2022-08-20 17:05] LABS: BASOPHILS % (AUTO) 0.7 % (0.0-5.0); EOSINOPHILS % (AUTO) 2.8 % (0.0-8.0); HEMATOCRIT 41.8 % (42-54); LYMPHOCYTES % (AUTO) 31.7 % (21.0-51.0); MEAN CORPUSCULAR HEMOGLOBIN 29.2 pg (27.0-33.0); MEAN CORPUSCULAR HGB CONC 30.6 g/dL (32.0-36.0); MEAN CORPUSCULAR VOLUME 95.4 fL (79-99); MONOCYTES % (AUTO) 8.5 % (3.0-13.0); PLATELET COUNT (AUTO) 257 K/uL (130-400); RED BLOOD CELL COUNT(AUTO) 4.38 MIL/uL (4.50-6.20); RED CELL DISTRIBUTION WIDTH 14.2 % (11.0-15.5); WHITE BLOOD COUNT (AUTO) 7.6 K/uL (4.8-10.8)
[2022-08-20 17:13] LABS: CREATININE 1.3 mg/dL (0.5-1.5); POTASSIUM 4.4 mmol/L (3.5-5.1)
[2022-08-20 17:18] LABS: ALBUMIN 3.6 g/dL (3.5-5.0); TOTAL PROTEIN, SERUM 7.3 g/dL (6.0-8.3)
[2022-08-20 19:50] LABS: INR 3.11 (0.85-1.15); PROTHROMBIN TIME 31.8 SEC (9.6-11.6)
[2022-08-20 19:52] LABS: PARTIAL THROMBOPLASTIN TIME 44.2 SEC (26.3-35.5)
[2022-08-20 20:03] VITALS: BP 115/81
[2022-08-20] MEDS ORDERED: FUROSEMIDE 40MG VIAL IV ONE (20:30)
== END 2022-08-20 20:40 | disposition home or self-care (01) ==
LOC: EDH 16:45
DX: G89.29 Other chronic pain (principal); R07.89 Other chest pain; E78.00 Pure hypercholesterolemia, unspecified; I10 Essential (primary) hypertension; Z79.82 Long term (current) use of aspirin; Z95.1 Presence of aortocoronary bypass graft; Z79.899 Other long term (current) drug therapy
CPT/HCPCS: 99285; 71045; 83735; 84484 ×2; 80053; 83880; 85025; 85378; 85610; 85730; 36415; 93005; J1940

== ENCOUNTER → 2024-01-19 | Outpatient (CLI) | payer OTHER | END | disposition home or self-care (01) | LOC: SHCH 08:00 | PROVIDERS: ATTEND Internal Medicine Cardiovascular Disease | DX: R06.00 Dyspnea, unspecified (principal); Z95.2 Presence of prosthetic heart valve | CPT/HCPCS: 93306 ==